=== PATIENT | male | born 1980 | race Caucasian/White ===

== ENCOUNTER → 2016-12-23 | Outpatient (CLI) | payer OTHER ==
[~2016-12-23] MED LIST: FLX5 PO; IBUP-1428 PO; LEVO112T4 PO; LEVO125T5 PO; LEVO137T3 PO; MAGN400T6 PO; NAPR500T3 PO; OXYC-57 PO; PRLSR20 PO
== END | disposition home or self-care (01) ==
LOC: C.LABBC 09:07
PROVIDERS: ATTEND Internal Medicine Geriatric Medicine
DX: E03.9 Hypothyroidism, unspecified (principal)

== ENCOUNTER 2017-02-05 15:37 | Inpatient (IN) | payer OTHER ==
[~2017-02-05] VITALS: Ht 185.4 cm; Wt 87.5 kg
[~2017-02-05 15:37] MED LIST changes: -FLX5 PO; -IBUP-1428 PO; -LEVO125T5 PO; -LEVO137T3 PO; -MAGN400T6 PO; -NAPR500T3 PO
[2017-02-05] MEDS ORDERED: SODIUM CHLORIDE 0.9% 1000ML 2,000 ML IV STA (15:55)
[2017-02-05] MEDS ORDERED: CYCLOBENZAPRINE HCL 10 MG TAB PO STA (16:05)
[2017-02-05] MEDS ORDERED: FENTANYL CITRATE INJ 50 MCG/1 ML 2 ML VIAL IV STA (16:05)
--- NOTE | 2017-02-05 16:15 | EMERGENCY ROOM VISIT NOTE ---
History Report prepared by Ashly: Kath Mayen Under the Supervision of: Dr. Becca Canales M.D. First contact with patient: 15:47 Chief Complaint: PAIN (GENERALIZED) Stated Complaint: FOOT PAIN History of Present Illness The patient is a 36 year old male who presents to the Emergency Room with complaints of intermittent generalized pain that began this morning when he woke up. He currently rates his discomfort as a 7/10 in severity. The patient states that he works outside every day. He states that this morning he woke up and felt sore, but states that he can typically stretch through the pain. The patient states that his pain persisted and states that he took some vitamins, Magnesium, Potassium, and a protein shake. He additionally notes that he drank two gallons of water today. The patient states that his muscle aches have been migrating all over his body. He states that he could not walk at one point. 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 He denies any loss of consciousness. The patient states that each of his hands locked up at different times. He states that he does not smoke and has had no recent alcohol use. The patient states that he occasionally uses marijuana, but not often. He reports a history of hypothyroidism, noting that he takes alternating doses of 125 and 137 mg of Levothyroxine each day. Source of History: patient Onset: this morning Position: other (global) Symptom Intensity: 7/10 Quality: other (generalized pain) Timing: intermittent Associated Symptoms: No LOC Note: associated Symptoms: hands locking up, muscle aches Review of Systems See HPI for pertinent positives & negatives. A total of 10 systems reviewed and were otherwise negative. Past Medical & Surgical Medical Problems: (1) JIMENA (acute kidney injury) (2) ANAL & RECTAL ABSCESS (3) Rhabdomyolysis (4) Sleep apnea Family History Cancer Social History Smoking Status: Never Smoker Alcohol Use: none Drug Use: none Marital Status: Occupation Status: employed Current/Historical Medications Scheduled Levothyroxine Sodium (Levothyroxine Sodium), 1 TAB PO QAM Levothyroxine Sodium (Levothyroxine Sodium), 1 TAB PO QAM Magnesium Oxide (Mag-Ox), 400 MG PO UD Scheduled PRN Ibuprofen (Motrin), 800 MG PO UD PRN for Pain Allergies Coded Allergies: Amoxicillin (Verified Allergy, Intermediate, RED SPOTS, 02/05/17) Doxycycline (Verified Allergy, Intermediate, NAILS PEELING OFF, 02/05/17) Sulfa Antibiotics (Verified Allergy, Mild, `, 02/05/17) Cephalosporins (Verified Allergy, Unknown, DURICEF, 02/05/17) Penicillins (Verified Allergy, Unknown, 02/05/17) Physical Exam Vital Signs Date Time Temp Pulse Resp B/P (MAP) Pulse Ox O2 Delivery O2 Flow Rate FiO2 02/05/17 19:20 98 Room Air 02/05/17 17:35 87 18 131/86 98 Room Air 02/05/17 16:12 103 02/05/17 15:38 36.7 129 18 134/98 97 Room Air Physical Exam Vital signs reviewed. General: Anxious-appearing male, in no significant distress. HEENT: No scleral icterus, PERRLA, neck supple. Atraumatic. Cardiovascular: Tachycardic rate and regular rhythm, no extra sounds. Pulmonary: Clear to auscultation bilaterally, normal work of breathing. Abdomen: Soft, nontender, nondistended, positive bowel sounds. Musculoskeletal: Atraumatic, no peripheral edema. Neurologic: Patient awake alert and oriented x 3, full strength in all 4 extremities. Cranial nerves 2 through 12 grossly intact. Skin: Warm, dry, no rash Medical Decision & Procedures ER Provider Diagnostic Interpretation: X-ray results as stated below per interpretation by me and the radiologist: CHEST ONE VIEW PORTABLE CLINICAL HISTORY: tachycardia COMPARISON STUDY: 10/19/2013 FINDINGS: The cardiac and mediastinal contours are normal. There is no evidence of focal pulmonary consolidation. There is no evidence of failure. No pleural effusions are visualized.[ IMPRESSION: No active disease in the chest. Electronically signed by: Hitesh Mayer M.D. 02/05/2017 4:22 PM Dictated Date/Time: 02/05/2017 4:21 PM Laboratory Results Test 02/05/17 16:20 Prothrombin Time 10.6 SECONDS (9.0-12.0) Prothromb Time International Ratio 1.0 (0.9-1.1) Creatine Kinase MB 5.7 ng/ml (0.5-3.6) Creatine Kinase MB Ratio 0.6 (0-3.0) Thyroid Stimulating Hormone (TSH) 0.842 uIu/ml (0.300-4.500) Laboratory results per my review. Medications Administered Medications (Trade) Dose Ordered Sig/Ursula Route Start Time Stop Time Status Last Admin Dose Admin Sodium Chloride 2,000 ml @ 999 mls/hr Q2H1M STAT IV 02/05/17 15:55 02/05/17 17:55 DC 02/05/17 16:23 999 MLS/HR Fentanyl Citrate (Fentanyl Inj) 50 mcg NOW STAT IV 02/05/17 16:05 02/05/17 16:06 DC 02/05/17 16:38 50 MCG Cyclobenzaprine HCl (Flexeril Tab) 10 mg NOW STAT PO 02/05/17 16:05 02/05/17 16:06 DC 02/05/17 16:38 10 MG Acetaminophen (Tylenol Tab) 650 mg Q4H PRN PO 02/05/17 19:00 03/07/17 18:59 02/07/17 14:19 650 MG ECG Indication: other (generalized pain) Rate (beats per minute): 108 Rhythm: sinus tachycardia Findings: no acute ischemic change, no ectopy, other (biatrial enlargement) ED Course 1555: Ordered Sodium Chloride 2000 ml @ 999 mls/hr IV. 1558: Past medical records reviewed. The patient was evaluated in room C11B. A complete history and physical examination was performed. 1605: Ordered Flexeril Tab 10 mg PO, Fentanyl Inj 50 mcg IV. 1729: I reevaluated the patient and he is resting comfortably. I discussed the exam findings with him and I discussed the treatment plan. He verbalized complete understanding and agreement. He will be evaluated for further treatment. 1743: I discussed the patients case [facility] She is going to evaluate the patient for further treatment. Medical Decision The patient is a 36 year old male who presents to the ED with complaints of generalized pains. Differentials include dehydration, rhabdomyolysis, electrolyte abnormality, medication affect, heat stroke, renal failure, viral illness This patient was evaluated and appeared to be in no significant distress. IV access was obtained and laboratory work was drawn. Patient was hydrated with normal saline solution. Patient was given IV fentanyl and Flexeril. Patient was given Tylenol orally. Patient's laboratory work reveals a rhabdomyolysis as well as acute kidney injury. Patient was informed of the findings. Renal ultrasound was performed and is negative for obstructive changes. Patient's case was discussed with the hospitalist service who evaluated the patient for admission and further management. Medication Reconcilliation Current Medication List: was personally reviewed by me Consults Time Called: 1724 Consulting Physician: OLI Tello Returned Call: [phone] I discussed the patients case with OLI Tello. She is going to evaluate the patient for further treatment. Impression Primary Impression: Rhabdomyolysis Additional Impressions: Acute kidney injury Hypercalcemia Scribe Attestation The scribe's documentation has been prepared under my direction and personally reviewed by me in its entirety. I confirm that the note above accurately reflects all work, treatment, procedures, and medical decision making performed by me. Departure Information Dispostion Being Evaluated By Hospitalist Referrals No Doctor, Assigned (PCP) Problem Qualifiers
--- NOTE | 2017-02-05 16:24 | DIAGNOSTIC IMAGING REPORT ---
CHEST ONE VIEW PORTABLE CLINICAL HISTORY: tachycardia COMPARISON STUDY: 10/19/2013 FINDINGS: The cardiac and mediastinal contours are normal. There is no evidence of focal pulmonary consolidation. There is no evidence of failure. No pleural effusions are visualized.[ IMPRESSION: No active disease in the chest. Electronically signed by: Hitesh Mayer M.D. 02/05/2017 4:22 PM Dictated Date/Time: 02/05/2017 4:21 PM
[2017-02-05] MEDS ORDERED: LEVO125T4 PO (16:39)
[2017-02-05] MEDS ORDERED: LEVO137T3 PO (16:39)
[2017-02-05] MEDS ORDERED: IBUP-1428 PO (16:41)
[2017-02-05] MEDS ORDERED: MAGN400T6 PO (16:41)
[2017-02-05 16:51] LABS: BASO % 0.1 %; BASO ABS # 0.02 K/uL (0-0.2); COMPLETE YES; HEMATOCRIT 51.3 % (42-52); IG% 0.5 %; LYMPH % 14.5 %; LYMPH ABS # 2.63 K/uL (1.2-3.4); MEAN CELL VOLUME 87.2 fL (80-100); MEAN CORPUSCULAR HEMOGLOBIN 30.8 pg (25-34); MEAN CORPUSCULAR HGB CONC 35.3 g/dl (32-36); MEAN PLATELET VOLUME 10.7 fL (7.4-10.4); MONO % 7.3 %; NEUT % 77.6 %; PLATELET COUNT 364 K/uL (130-400); RED BLOOD COUNT 5.88 M/uL (4.7-6.1)
[2017-02-05 17:09] LABS: BUN/CREATININE RATIO 16.3 (10-20); CALCIUM 11.5 mg/dl (8.5-10.1); CREATININE 2.9 mg/dl (0.60-1.40); MAGNESIUM 2.8 mg/dl (1.8-2.4); POTASSIUM 3.5 mmol/L (3.5-5.1)
[2017-02-05 17:18] LABS: CKMB/CK RATIO 0.6 (0-3.0); PHOSPHORUS 2.6 mg/dl (2.5-4.9); THYROID STIMULATING HORMONE 0.842 uIu/ml (0.300-4.500)
--- NOTE | 2017-02-05 18:23 | DIAGNOSTIC IMAGING REPORT ---
EXAMINATION: RENAL ULTRASOUND CLINICAL HISTORY: Acute renal insufficiency COMPARISON STUDY: CT scan dated 11/14/2013 FINDINGS: The right kidney measures 10.2 cm. The left kidney measures 10.7 cm. There is no evidence of hydronephrosis. There are no renal masses. There is minimal increase in renal cortical echogenicity. No bladder abnormalities are visualized. Neither ureteral jet was visualized. IMPRESSION : 1. Subtle increase in renal cortical echogenicity, consistent with medical renal disease 2. No evidence of hydronephrosis. Electronically signed by: Hitesh Mayer M.D. 02/05/2017 6:22 PM Dictated Date/Time: 02/05/2017 6:20 PM
[2017-02-05 19:20] VITALS: O2SAT 98; Ht 185.4 cm; Wt 87.5 kg
[2017-02-05 20:00] VITALS: BP 135/91; PULSE 77; TEMP 36.9; O2SAT 100
[2017-02-05] MEDS: SODIUM CHLORIDE 0.9% 1000ML 1,000 ML IV SCH (20:34)
[2017-02-05 20:50] LABS: PROTHROMBIN TIME (PATIENT) 10.6 SECONDS (9.0-12.0)
[2017-02-05 21:07] LABS: BUN/CREATININE RATIO 20.9 (10-20); CALCIUM 9.4 mg/dl (8.5-10.1); CREATININE 1.9 mg/dl (0.60-1.40); MAGNESIUM 2.4 mg/dl (1.8-2.4); PHOSPHORUS 3.9 mg/dl (2.5-4.9); POTASSIUM 3.5 mmol/L (3.5-5.1)
[2017-02-05] MEDS: MoRPHine SULFATE 2 MG/ML CARP IV PRN (21:26)
[2017-02-05] MEDS: HEPARIN SOD 5000 UNIT/0.5 ML CARP SQ SCH (23:09)
--- NOTE | 2017-02-05 23:13 | History and Physical ---
History & Physical Date & Time of Service: Feb 05, 2017 at 18:29 Chief Complaint: Foot Pain Primary Care Physician: James Barrios M.D. History of Present Illness Source: patient Pt is a 36 yo male with a h/o hypothyroidism who presents with severe muscle cramping and tetany throughout entire body that came on this afternoon. 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 He took some magnesium and calcium 1 tablet as well as ibuprofen one dose last night. When he woke up this AM, he felt better and proceeded to do more outdoor work today outside. He drank 2 full gallons of water today but by the afternoon he started having tetany and severe muscle cramps in his hands and arms, feet and legs, and lower back. It became so severe he had to lie down on the ground for about 20 min until he was finally able to get up and come in to the hospital. He reports similar symptoms but not nearly as severe about 1 month ago after doing some outdoor work. Prior to the last month, he hs never had problems like this before, never had kidney problems. He used to exercise frequently and would be sore but nothing like this. In ER, he was found to have JIMENA with a track patrol of 2.9, and mild rhabdomyolysis with a CK of almost 900. He was hypercalcemic, and had a leukocytosis of 18k and Hgb was high at 18. He appeared very dry and was oliguric despite drinking 2 galloons of water and 2 L IVFs in ER, finally made about 8 oz of urine as per pt (not measured in ER). Past Medical/Surgical History PMH: Hypothyroidism Sleep apnea PSH: Rectal abscess drainage x 2 Family History Cancer Father-some sort of aortic valve or aorta problem-pt unsure Mother- of GBM age 55 Social History Smoking Status: Never Smoker Alcohol Use: occasionally (3-4 beers per week) Drug Use: none (reports none to me but he told ER MD he smokes Marijuana occasionally) Marital Status: (and has a 1 yr old daughter) Housing status: lives with family Occupational Status: employed (self-employed [employer] business) Immunizations History of Influenza Vaccine: Unknown History of Tetanus Vaccine?: Unknown History of Pneumococcal: Unknown History of Hepatitis B Vaccine: Unknown Multi-Drug Resistant Organisms History of MDRO: No Allergies Coded Allergies: Amoxicillin (Verified Allergy, Intermediate, RED SPOTS, 02/05/17) Doxycycline (Verified Allergy, Intermediate, NAILS PEELING OFF, 02/05/17) Sulfa Antibiotics (Verified Allergy, Mild, `, 02/05/17) Cephalosporins (Verified Allergy, Unknown, DURICEF, 02/05/17) Penicillins (Verified Allergy, Unknown, 02/05/17) Home Medications Scheduled Levothyroxine Sodium (Levothyroxine Sodium), 1 TAB PO QAM Levothyroxine Sodium (Levothyroxine Sodium), 1 TAB PO QAM Magnesium Oxide (Mag-Ox), 400 MG PO UD Scheduled PRN Ibuprofen (Motrin), 800 MG PO UD PRN for Pain Review of Systems Constitutional: No fever, No chills Eyes: No problem reported ENT: No problem reported Respiratory: No problem reported Cardiovascular: No problem reported Abdomen: No GI bleeding, No problem reported Musculoskeletal: + muscle pain Genitourinary - Male: No problem reported Neurologic: No problem reported Psychiatric: No problem reported Endocrine: No problem reported Hematologic / Lymphatic: No problem reported Integumentary: No problem reported Allergic / Immunologic: No problem reported Physical Exam Vital Signs Date Time Temp Pulse Resp B/P (MAP) Pulse Ox O2 Delivery O2 Flow Rate FiO2 02/05/17 17:35 87 18 131/86 98 Room Air 02/05/17 16:12 103 02/05/17 15:38 36.7 129 18 134/98 97 Room Air General Appearance: WD/WN, no apparent distress Head: normocephalic, atraumatic Eyes: normal inspection, PERRL, EOMI ENT: hearing grossly normal, pharynx normal Neck: supple, trachea midline Respiratory/Chest: lungs clear, normal breath sounds, no respiratory distress, no accessory muscle use Cardiovascular: regular rate, rhythm, no edema, no gallop, no murmur, normal peripheral pulses Abdomen/GI: normal bowel sounds, non tender, soft, no organomegaly, no pulsatile mass Back: normal inspection, no muscle spasm (and no TTP) Extremities/Musculoskelatal: normal inspection, + pertinent finding (+TTP over all muscle groups, no active tetany, all compartments soft in upper and lower extremities, 2+ DP and radial pulses, no edema) Neurologic/Psych: no motor/sensory deficits, alert, normal mood/affect, oriented x 3 Skin: normal color, warm/dry, no rash Diagnostics Laboratory Results Results Past 24 Hours Test 02/05/17 16:20 Range/Units White Blood Count 18.10 4.8-10.8 K/uL Red Blood Count 5.88 4.7-6.1 M/uL Hemoglobin 18.1 14.0-18.0 g/dL Hematocrit 51.3 42-52 % Mean Corpuscular Volume 87.2 80-100 fL Mean Corpuscular Hemoglobin 30.8 25-34 pg Mean Corpuscular Hemoglobin Concent 35.3 32-36 g/dl Platelet Count 364 130-400 K/uL Mean Platelet Volume 10.7 7.4-10.4 fL Neutrophils (%) (Auto) 77.6 % Lymphocytes (%) (Auto) 14.5 % Monocytes (%) (Auto) 7.3 % Eosinophils (%) (Auto) 0.0 % Basophils (%) (Auto) 0.1 % Neutrophils # (Auto) 14.04 1.4-6.5 K/uL Lymphocytes # (Auto) 2.63 1.2-3.4 K/uL Monocytes # (Auto) 1.32 0.11-0.59 K/uL Eosinophils # (Auto) 0.00 0-0.5 K/uL Basophils # (Auto) 0.02 0-0.2 K/uL RDW Standard Deviation 42.6 36.4-46.3 fL RDW Coefficient of Variation 13.3 11.5-14.5 % Immature Granulocyte % (Auto) 0.5 % Immature Granulocyte # (Auto) 0.09 0.00-0.02 K/uL Sodium Level 130 136-145 mmol/L Potassium Level 3.5 3.5-5.1 mmol/L Chloride Level 96 98-107 mmol/L Carbon Dioxide Level 18 21-32 mmol/L Anion Gap 16.0 3-11 mmol/L Blood Urea Nitrogen 47 7-18 mg/dl Creatinine 2.90 0.60-1.40 mg/dl Est Creatinine Clear Calc Drug Dose 40.6 ml/min Estimated GFR () 31.3 Estimated GFR (Non- 27.0 BUN/Creatinine Ratio 16.3 10-20 Random Glucose 100 70-99 mg/dl Calcium Level 11.5 8.5-10.1 mg/dl Phosphorus Level 2.6 2.5-4.9 mg/dl Magnesium Level 2.8 1.8-2.4 mg/dl Total Bilirubin 1.5 0.2-1 mg/dl Direct Bilirubin 0.2 0-0.2 mg/dl Aspartate Amino Transf (AST/SGOT) 32 15-37 U/L Alanine Aminotransferase (ALT/SGPT) 29 12-78 U/L Alkaline Phosphatase 74 45-117 U/L Total Creatine Kinase 898 39-308 U/L Creatine Kinase MB 5.7 0.5-3.6 ng/ml Creatine Kinase MB Ratio 0.6 0-3.0 Total Protein 9.8 6.4-8.2 gm/dl Albumin 5.7 3.4-5.0 gm/dl Thyroid Stimulating Hormone (TSH) 0.842 0.300-4.500 uIu/ml Impression Assessment and Plan Pt is a 36 yo male with a h/o hypothyroidism who presents with severe muscle cramping and tetany throughout entire body that came on this afternoon. 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 He took some magnesium and calcium 1 tablet as well as ibuprofen one dose last night. When he woke up this AM, he felt better and proceeded to do more outdoor work today outside. He drank 2 full gallons of water today but by the afternoon he started having tetany and severe muscle cramps in his hands and arms, feet and legs, and lower back. It became so severe he had to lie down on the ground for about 20 min until he was finally able to get up and come in to the hospital. He reports similar symptoms but not nearly as severe about 1 month ago after doing some outdoor work. Prior to the last month, he hs never had problems like this before, never had kidney problems. He used to exercise frequently and would be sore but nothing like this. In ER, he was found to have JIMENA with a track patrol of 2.9, and mild rhabdomyolysis with a CK of almost 900. He was hypercalcemic, and had a leukocytosis of 18k and Hgb was high at 18. He appeared very dry and was oliguric despite drinking 2 galloons of water and 2 L IVFs in ER, finally made about 8 oz of urine as per pt (not measured in ER). JIMENA, AG metabolic acidosis, hyponatremia, hypercalcemia, rhabdomyolysis, Tetany- -> [employer] 2.9 on admission, Na+ 130, HCO3 18, AG 16, Ca++ 11.6, CK 898 on admission. Suspect underlying intrinsic renal disease given h/o previous symptoms similar to this 1 month ago in an otherwise healthy person, plus some component of prerenal injury due to dehydration (very hemoconcentrated on CBC), plus may be some component of rhabdo causing JIMENA however CK is not very impressive. Renal US with evidence of medical renal disease. He did take Prilosec x 1 year recently, but discontinued it 4 months ago. He only takes NSAIDs very rarely, and takes no supplements except an occasional Protein "Recovery Shake." Repeat PRP already all improving after IVFs. [employer] down to 1.9, met acidosis resolved. UA and Ur eos still not collected -follow PRP in AM -Consult to Nephrology appreciated to assess for any intrinsic renal disease or further workup -continue NS 200 mls/hr -pain control with morphine prn -follow CPK -renally dose meds and avoid nephrotoxins -renal diet Leukocytosis--> likely secondary to stress reaction. No evidence of infection on exam. UA still pending. -follow CBC Hypothyroidism- TSH normal here -continue home dose of Synthroid Proph-heparin Dispo-to home when improved Level of Care Med/Surg Resuscitation Status FULL RESUSCITATION VTE Prophylaxis Risk Level: Low Given or contraindicated: Unfractionated heparin SQ Additional Copies To James Barrios M.D.
[2017-02-06 00:06] VITALS: BP 147/81; PULSE 80; TEMP 36.5; O2SAT 99
[2017-02-06] MEDS: CYCLOBENZAPRINE HCL 5 MG TAB PO PRN ×2 (00:53→20:05)
[2017-02-06] MEDS: SODIUM CHLORIDE 0.9% 1000ML 1,000 ML IV SCH ×5 (00:53→20:09)
[2017-02-06] MEDS ORDERED: ZOLPIDEM TARTRATE 5 MG TAB PO STA (01:29)
[2017-02-06] MEDS ORDERED: ZOLPIDEM TARTRATE 5 MG TAB ONE (01:48)
[2017-02-06] MEDS: HEPARIN SOD 5000 UNIT/0.5 ML CARP SQ SCH ×3 (06:00→22:00)
[2017-02-06] MEDS: LEVOTHYROXINE 137 MCG TAB PO SCH (06:17)
[2017-02-06 06:43] LABS: BASO % 0.3 %; BASO ABS # 0.03 K/uL (0-0.2); COMPLETE YES; HEMATOCRIT 41.4 % (42-52); IG% 0.3 %; LYMPH % 49.9 %; LYMPH ABS # 4.52 K/uL (1.2-3.4); MEAN CELL VOLUME 89.4 fL (80-100); MEAN CORPUSCULAR HEMOGLOBIN 29.8 pg (25-34); MEAN CORPUSCULAR HGB CONC 33.3 g/dl (32-36); MEAN PLATELET VOLUME 9.8 fL (7.4-10.4); MONO % 11.4 %; NEUT % 37.1 %; PLATELET COUNT 268 K/uL (130-400); RED BLOOD COUNT 4.63 M/uL (4.7-6.1); WHITE BLOOD COUNT 9.06 K/uL (4.8-10.8)
[2017-02-06 07:02] LABS: BUN/CREATININE RATIO 20.8 (10-20); CALCIUM 8.5 mg/dl (8.5-10.1); CREATININE 1.2 mg/dl (0.60-1.40); MAGNESIUM 2.4 mg/dl (1.8-2.4); POTASSIUM 3.6 mmol/L (3.5-5.1)
[2017-02-06 07:23] LABS: PHOSPHORUS 3.4 mg/dl (2.5-4.9)
[2017-02-06 07:49] VITALS: BP 100/62; PULSE 73; TEMP 36.6; O2SAT 99
--- NOTE | 2017-02-06 08:20 | Medical Student: [facility] ---
Med Student Progress Note Date of Service Feb 06, 2017. Subjective No acute events overnight. Continues to complain of pain and cramping in muscles, mostly legs. He states that the pain travels from calf to hamstring/ thigh. He has been producing urine. He denies fever, chills, lightheadedness. He reports a headache but states it is improved from yesterday. He reports some nausea but denies abdominal pain, vomiting, diarrhea. Weakness of extremities but denies numbness, tingling or swelling. Review of Systems Constitutional: No fever, No chills, No sweats Respiratory: No cough, No shortness of breath Cardiac: No chest pain, No orthopnea, No edema Abdomen: + nausea, No pain, No vomiting Musculoskeletal: + muscle pain, No swelling Male : No dysuria, No urinary frequency, No hematuria Neurologic: + weakness, No numbness/tingling Objective Vital Signs Date Time Temp Pulse Resp B/P (MAP) Pulse Ox O2 Delivery O2 Flow Rate FiO2 02/06/17 07:49 36.6 73 16 100/62 (75) 99 Room Air 02/06/17 00:06 36.5 80 20 147/81 (103) 99 Room Air 02/06/17 00:00 Room Air 02/05/17 20:00 36.9 77 18 135/91 (106) 100 Room Air Free Flow/Blowby 02/05/17 19:30 80 18 131/86 98 Room Air 02/05/17 19:20 98 Room Air 02/05/17 17:35 87 18 131/86 98 Room Air 02/05/17 16:12 103 02/05/17 15:38 36.7 129 18 134/98 97 Room Air Physical Exam General Appearance: WD/WN, + mild distress Eyes: bilateral eyes PERRL, bilateral eyes EOMI Neck: supple, no adenopathy, thyroid normal Respiratory/Chest: lungs clear, normal breath sounds, no respiratory distress Cardiovascular: regular rate, rhythm, no edema, no gallop, no murmur Abdomen: normal bowel sounds, non tender, soft Extremities: normal range of motion, + pertinent finding (tenderness to calves and thighs, less tender in biceps/triceps) Neurologic/Psychiatric: no motor/sensory deficits, alert, normal mood/affect Skin: normal color, warm/dry, no rash Laboratory Results Last 24 Hours Test 02/05/17 16:20 02/05/17 20:30 02/06/17 05:56 White Blood Count 18.10 K/uL 9.06 K/uL Red Blood Count 5.88 M/uL 4.63 M/uL Hemoglobin 18.1 g/dL 13.8 g/dL Hematocrit 51.3 % 41.4 % Mean Corpuscular Volume 87.2 fL 89.4 fL Mean Corpuscular Hemoglobin 30.8 pg 29.8 pg Mean Corpuscular Hemoglobin Concent 35.3 g/dl 33.3 g/dl Platelet Count 364 K/uL 268 K/uL Mean Platelet Volume 10.7 fL 9.8 fL Neutrophils (%) (Auto) 77.6 % 37.1 % Lymphocytes (%) (Auto) 14.5 % 49.9 % Monocytes (%) (Auto) 7.3 % 11.4 % Eosinophils (%) (Auto) 0.0 % 1.0 % Basophils (%) (Auto) 0.1 % 0.3 % Neutrophils # (Auto) 14.04 K/uL 3.36 K/uL Lymphocytes # (Auto) 2.63 K/uL 4.52 K/uL Monocytes # (Auto) 1.32 K/uL 1.03 K/uL Eosinophils # (Auto) 0.00 K/uL 0.09 K/uL Basophils # (Auto) 0.02 K/uL 0.03 K/uL RDW Standard Deviation 42.6 fL 45.3 fL RDW Coefficient of Variation 13.3 % 13.7 % Immature Granulocyte % (Auto) 0.5 % 0.3 % Immature Granulocyte # (Auto) 0.09 K/uL 0.03 K/uL Prothrombin Time 10.6 SECONDS Prothromb Time International Ratio 1.0 Sodium Level 130 mmol/L 136 mmol/L 140 mmol/L Potassium Level 3.5 mmol/L 3.5 mmol/L 3.6 mmol/L Chloride Level 96 mmol/L 103 mmol/L 109 mmol/L Carbon Dioxide Level 18 mmol/L 24 mmol/L 27 mmol/L Anion Gap 16.0 mmol/L 9.0 mmol/L 4.0 mmol/L Blood Urea Nitrogen 47 mg/dl 40 mg/dl 25 mg/dl Creatinine 2.90 mg/dl 1.90 mg/dl 1.20 mg/dl Est Creatinine Clear Calc Drug Dose 40.6 ml/min 61.9 ml/min 98.0 ml/min Estimated GFR () 31.3 52.1 90.9 Estimated GFR (Non- 27.0 45.0 78.4 BUN/Creatinine Ratio 16.3 20.9 20.8 Random Glucose 100 mg/dl 100 mg/dl 84 mg/dl Calcium Level 11.5 mg/dl 9.4 mg/dl 8.5 mg/dl Phosphorus Level 2.6 mg/dl 3.9 mg/dl 3.4 mg/dl Magnesium Level 2.8 mg/dl 2.4 mg/dl 2.4 mg/dl Total Bilirubin 1.5 mg/dl 0.9 mg/dl Direct Bilirubin 0.2 mg/dl 0.2 mg/dl Aspartate Amino Transf (AST/SGOT) 32 U/L 46 U/L Alanine Aminotransferase (ALT/SGPT) 29 U/L 25 U/L Alkaline Phosphatase 74 U/L 48 U/L Total Creatine Kinase 898 U/L 1689 U/L Creatine Kinase MB 5.7 ng/ml Creatine Kinase MB Ratio 0.6 Total Protein 9.8 gm/dl 6.7 gm/dl Albumin 5.7 gm/dl 3.5 gm/dl Thyroid Stimulating Hormone (TSH) 0.842 uIu/ml 25-Hydroxy Vitamin D Total 30.8 ng/ml Medications Current Inpatient Medications Medications (Trade) Dose Ordered Sig/Ursula Route Start Time Stop Time Status Last Admin Dose Admin Heparin Sodium (Porcine) (Heparin Sq 5000 Unit/0.5ml) 5,000 unit Q8H SQ 02/05/17 22:00 03/07/17 21:59 Acetaminophen (Tylenol Tab) 650 mg Q4H PRN PO 02/05/17 19:00 03/07/17 18:59 Morphine Sulfate (MoRPHine SULFATE INJ) 2 mg Q2H PRN IV 02/05/17 19:30 02/19/17 19:29 02/05/17 21:26 2 MG Sodium Chloride 1,000 ml @ 200 mls/hr Q5H IV 02/05/17 19:30 03/07/17 19:29 02/06/17 05:50 200 MLS/HR Levothyroxine Sodium (Synthroid Tab) 125 mcg Q2D@0600 PO 02/07/17 06:00 03/09/17 05:59 Levothyroxine Sodium (Synthroid Tab) 137 mcg Q2D@0600 PO 02/06/17 06:00 03/08/17 05:59 02/06/17 06:17 137 MCG Cyclobenzaprine HCl (Flexeril Tab) 5 mg TID PRN PO 02/05/17 23:45 03/07/17 23:44 02/06/17 00:53 5 MG Assessment and Plan Assessment and Plan: 36 year old male with a past medical history of hypothyroidism who presented with 2 day duration of severe muscle cramping and tetany who was found to have a CK 898 uptrending to 1689 consistent with rhabdomyolysis as well as a JIMENA with a Cr 2.9 on admission. Myopathy - likely rhabdomyolysis with CK 898, repeat 1,689; UA negative for blood; per Nephro recs check urine for myoglobin - denies steroid use, alcohol use, drug use; TSH WNL, electrolyte abnormalities resolved and pain persists - if does not improve with aggressive fluid resuscitation will consider checking ESR, lyme titers for inflammatory and infectious etiologies of myopathy - Lactate (0.7) and LDH (169) WNL - continue NS at 200ml/hr - Morphine prn and acetominophen for pain control JIMENA - likely component of prerenal and ATN from the elevated CK/possible rhabdo - continue NS at 200ml/hr - BMP qAM - renal diet, renally dose meds - Nephrology following Leukocytosis - 16 on admission, now 9 - resolved with fluid resuscitation, was likely due to stress reaction - UA negative Hypothyroidism - TSH WNL - continue levothyroxine at 125 q2d and 137 q2d Electrolyte abnormalities - hyponatermia resolved - hypercalcemia resolved
[2017-02-06] MEDS: ACETAMINOPHEN 325 MG TAB PO PRN (08:27)
[2017-02-06] MEDS: MoRPHine SULFATE 2 MG/ML CARP IV PRN ×4 (08:28→20:00)
[2017-02-06 09:01] LABS: MANUAL MICROSCOPIC REQUIRED? NO; URINE APPEARANCE CLEAR (CLEAR); URINE BILIRUBIN NEG (NEG); URINE COLOR YELLOW; URINE NITRITE NEG (NEG); UROBILINOGEN NEG (NEG)
[2017-02-06 09:04] LABS: REVIEW REQ? NO
[2017-02-06] MEDS ORDERED: MoRPHine SULFATE 2 MG/ML CARP IV STA (10:13)
--- NOTE | 2017-02-06 10:38 | Nephrology Consultation ---
Nephrology Consultation Date & Providers Date of Consultation: Feb 06, 2017. Primary Care Provider: James Barrios M.D. Referring Provider: Reason for Consultation Evaluation and management for acute kidney injury. History of Present Illness David is a 36-year-old gentlemen otherwise healthy with no significant past medical history admitted to the hospital with muscle weakness, myalgia and acute kidney injury. nephrologic consult was requested for further evaluation and management for acute kidney injury. Electronic medical records including labs and imaging were reviewed in detail during patient's visit. David was in his usual state of health until yesterday when he did some yard work. While he was working outside he started noticing muscle weakness and pain. he feel like he was unable to walk. Throughout the workup or said he has been drinking and drank almost 2 liters of free water. Eventually as his pain and weakness worsened he presented to the ED ED for further evaluation. In the ED his vital sign was normal. Lab showed acute kidney injury, creatinine was 2.8. He had no prior history of chronic kidney disease, baseline creatinine has been 0.9-1.0. He had other electrolyte abnormality including hyponatremia, serum sodium was 130, hypercalcemia, calcium was 11.5 and metabolic acidosis. Hemoglobin was 18.1 and albumin was 5.7. Renal ultrasound showed normal size kidney, no hydronephrosis however concern for medical renal disease although the imaging study did not show significant cortical atrophy or increased echogenicity. urinalysis was negative for hematuria, proteinuria pyuria But had 1+ ketones. CPK level was and 900 which slightly worsened today to 1400. Potassium was normal, TSH and vitamin-D was normal. He was started on IV hydration, currently running at normal saline 200 mL/hour. Renal function rapidly improved, creatinine 1.2 this morning. Has been having decent urine output. Electrolyte abnormality normalized. Hemoglobin normalized. He reports similar but less severe episode almost a month ago while doing yard work. 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 He has hypothyroidism has been on levothyroxine. He is a nonsmoker, denies any recreational drug or any other health supplement. No family history of myopathy. He has not been on statin therapy. Family history significant for mother passed a rare from glioblastoma, dad and a brother is otherwise healthy. He continues to have significant pain and weakness specially in his proximal thigh and back muscle. No fever or chills. Denies any nausea or abdominal pain. Allergies Coded Allergies: Amoxicillin (Verified Allergy, Intermediate, RED SPOTS, 02/05/17) Doxycycline (Verified Allergy, Intermediate, NAILS PEELING OFF, 02/05/17) Sulfa Antibiotics (Verified Allergy, Mild, `, 02/05/17) Cephalosporins (Verified Allergy, Unknown, DURICEF, 02/05/17) Penicillins (Verified Allergy, Unknown, 02/05/17) Inpatient Medications Current Inpatient Medications Medications (Trade) Dose Ordered Sig/Ursula Route Start Time Stop Time Status Last Admin Dose Admin Heparin Sodium (Porcine) (Heparin Sq 5000 Unit/0.5ml) 5,000 unit Q8H SQ 02/05/17 22:00 03/07/17 21:59 Acetaminophen (Tylenol Tab) 650 mg Q4H PRN PO 02/05/17 19:00 03/07/17 18:59 02/06/17 08:27 650 MG Morphine Sulfate (MoRPHine SULFATE INJ) 2 mg Q2H PRN IV 02/05/17 19:30 02/19/17 19:29 02/06/17 08:28 2 MG Sodium Chloride 1,000 ml @ 200 mls/hr Q5H IV 02/05/17 19:30 03/07/17 19:29 02/06/17 05:50 200 MLS/HR Levothyroxine Sodium (Synthroid Tab) 125 mcg Q2D@0600 PO 02/07/17 06:00 03/09/17 05:59 Levothyroxine Sodium (Synthroid Tab) 137 mcg Q2D@0600 PO 02/06/17 06:00 03/08/17 05:59 02/06/17 06:17 137 MCG Cyclobenzaprine HCl (Flexeril Tab) 5 mg TID PRN PO 02/05/17 23:45 03/07/17 23:44 02/06/17 00:53 5 MG Family History Cancer Social History Smoking Status: Never Smoker Alcohol Use: occasionally (3-4 beers per week) Drug Use: none (reports none to me but he told ER he smokes Marijuana occasionally) Marital Status: (and has a 1 yr old daughter) Housing Status: lives with family Occupation: employed (self-employed [employer] business) Review of Systems A complete review of systems was performed. Pertinent positives are noted above. All other systems are negative. Physical Exam Date Time Temp Pulse Resp B/P (MAP) Pulse Ox O2 Delivery O2 Flow Rate FiO2 02/06/17 08:00 Room Air 02/06/17 07:49 36.6 73 16 100/62 (75) 99 Room Air 02/06/17 00:06 36.5 80 20 147/81 (103) 99 Room Air 02/06/17 00:00 Room Air 02/05/17 20:00 36.9 77 18 135/91 (106) 100 Room Air Free Flow/Blow[place] 02/05/17 19:30 80 18 131/86 98 Room Air 02/05/17 19:20 98 Room Air 02/05/17 17:35 87 18 131/86 98 Room Air 02/05/17 16:12 103 02/05/17 15:38 36.7 129 18 134/98 97 Room Air GENERAL: Young male, AAA x 3, pleasant, healthy-appearing, not in any distress. NECK: Supple, no JVD. RESPIRATORY: Normal breathing efforts, no accessory muscle use, clear to auscultation bilaterally, no wheezes or rales. CARDIOVASCULAR: S1, S2 normal, rate rhythm regular. EXTREMITY: No lower extremity edema NEURO: speech fluent. PSYCHIATRY: Normal mood and judgment Laboratory Results Last 24 Hours Test 02/05/17 16:20 02/05/17 20:30 02/06/17 05:56 02/06/17 08:50 White Blood Count 18.10 K/uL 9.06 K/uL Red Blood Count 5.88 M/uL 4.63 M/uL Hemoglobin 18.1 g/dL 13.8 g/dL Hematocrit 51.3 % 41.4 % Mean Corpuscular Volume 87.2 fL 89.4 fL Mean Corpuscular Hemoglobin 30.8 pg 29.8 pg Mean Corpuscular Hemoglobin Concent 35.3 g/dl 33.3 g/dl Platelet Count 364 K/uL 268 K/uL Mean Platelet Volume 10.7 fL 9.8 fL Neutrophils (%) (Auto) 77.6 % 37.1 % Lymphocytes (%) (Auto) 14.5 % 49.9 % Monocytes (%) (Auto) 7.3 % 11.4 % Eosinophils (%) (Auto) 0.0 % 1.0 % Basophils (%) (Auto) 0.1 % 0.3 % Neutrophils # (Auto) 14.04 K/uL 3.36 K/uL Lymphocytes # (Auto) 2.63 K/uL 4.52 K/uL Monocytes # (Auto) 1.32 K/uL 1.03 K/uL Eosinophils # (Auto) 0.00 K/uL 0.09 K/uL Basophils # (Auto) 0.02 K/uL 0.03 K/uL RDW Standard Deviation 42.6 fL 45.3 fL RDW Coefficient of Variation 13.3 % 13.7 % Immature Granulocyte % (Auto) 0.5 % 0.3 % Immature Granulocyte # (Auto) 0.09 K/uL 0.03 K/uL Prothrombin Time 10.6 SECONDS Prothromb Time International Ratio 1.0 Sodium Level 130 mmol/L 136 mmol/L 140 mmol/L Potassium Level 3.5 mmol/L 3.5 mmol/L 3.6 mmol/L Chloride Level 96 mmol/L 103 mmol/L 109 mmol/L Carbon Dioxide Level 18 mmol/L 24 mmol/L 27 mmol/L Anion Gap 16.0 mmol/L 9.0 mmol/L 4.0 mmol/L Blood Urea Nitrogen 47 mg/dl 40 mg/dl 25 mg/dl Creatinine 2.90 mg/dl 1.90 mg/dl 1.20 mg/dl Est Creatinine Clear Calc Drug Dose 40.6 ml/min 61.9 ml/min 98.0 ml/min Estimated GFR () 31.3 52.1 90.9 Estimated GFR (Non- 27.0 45.0 78.4 BUN/Creatinine Ratio 16.3 20.9 20.8 Random Glucose 100 mg/dl 100 mg/dl 84 mg/dl Calcium Level 11.5 mg/dl 9.4 mg/dl 8.5 mg/dl Phosphorus Level 2.6 mg/dl 3.9 mg/dl 3.4 mg/dl Magnesium Level 2.8 mg/dl 2.4 mg/dl 2.4 mg/dl Total Bilirubin 1.5 mg/dl 0.9 mg/dl Direct Bilirubin 0.2 mg/dl 0.2 mg/dl Aspartate Amino Transf (AST/SGOT) 32 U/L 46 U/L Alanine Aminotransferase (ALT/SGPT) 29 U/L 25 U/L Alkaline Phosphatase 74 U/L 48 U/L Total Creatine Kinase 898 U/L 1689 U/L Creatine Kinase MB 5.7 ng/ml Creatine Kinase MB Ratio 0.6 Total Protein 9.8 gm/dl 6.7 gm/dl Albumin 5.7 gm/dl 3.5 gm/dl Thyroid Stimulating Hormone (TSH) 0.842 uIu/ml 25-Hydroxy Vitamin D Total 30.8 ng/ml Urine Color YELLOW Urine Appearance CLEAR Urine pH 6.0 Urine Specific [place] 1.010 Urine Protein NEG Urine Glucose (UA) NEG Urine Ketones 1+ Urine Occult Blood NEG Urine Nitrite NEG Urine Bilirubin NEG Urine Urobilinogen NEG Urine Leukocyte Esterase NEG Test 02/06/17 09:48 Impression David is a 36-year-old male with acute kidney injury and electrolyte abnormality in the setting of straining was outside at activity. On admission he was found to be significantly volume depleted. acute kidney injury most likely prerenal as renal function rapidly improved from creatinine 2.7-1.2 less than 24 hours with IV hydration. No prior history of chronic kidney disease. Urinalysis negative for hematuria proteinuria. Renal ultrasound was otherwise unremarkable. He did have evidence of mild rhabdomyolysis but not enough to cause acute kidney injury. Since this happened twice in a young person who was otherwise normally pretty active, Cannot exclude the possibility for some underlying metabolic myopathy however, could be secondary to severe volume depletion with strenuous activity causing muscle damage. Although renal ultrasound report commented on some medical renal disease, however patient has normal renal function, baseline creatinine 0.9-1.0, imaging personally reviewed did not show any significant renal cortical thinning or increased echogenicity. Recommendations --continue on IV normal saline at 200 mL/hour --repeat CPK --Check urine with microscopy and myoglobin in urine --will check lactate, LDH and I wait for any evidence of metabolic disorder --Discussed in detail with the patient and explained above plan. --expect renal function to normalize --eventually if all workup negative and patient continues to have significant muscle pain, he may need muscle biopsy Thank you for allowing me to participate in your patient's care. It was a pleasure to see David This chart was completed utilizing [employer] Speech and voice recognition software. Grammatical errors, random word insertions, pronoun errors and incomplete sentences are occasional consequences of this system. Any questions or concerns about the content, text or information contained within the body of this dictation should be addressed directly to the physician for clarification.
--- NOTE | 2017-02-06 14:03 | Family Medicine Progress Note ---
Progress Note Date of Service Feb 06, 2017. Subjective Pt evaluation today including: conversation w/ patient, physical exam, chart review, lab review, review of inpatient medication list Pain: Generalized pain and stiffness reported, worse in calves PO Intake: Tolerating PO intake Voiding: no voiding problems Mr. Pulido is a pleasant 36 year old man who states he is currently experiencing generalized stiffness and pain in his arms, lower back, but worst of all, in his calves travelling up his legs. He states the pain has improved since yesterday, and is not pulsating as much, but that it is stiff and that he experiences 6/10 cramps that come and go as though he has recently run a mile and the muscles are sore. He experiences difficulty with walking as stretching out his legs is painful, and reports that the pain is best when he lies down and elevates his legs. He denies nausea and vomiting, dizziness, chest pain and shortness of breath. Constitutional: + weakness, No fever, No chills, No sweats, No weight loss Respiratory: No cough, No sputum, No wheezing, No shortness of breath Cardiovascular: No chest pain, No orthopnea, No PND, No edema Abdomen: No pain, No nausea, No vomiting, No diarrhea, No constipation Musculoskeletal: + muscle pain, + calf pain Male : No dysuria, No urinary frequency, No hematuria All Other Systems: Reviewed and Negative Medications Current Inpatient Medications Medications (Trade) Dose Ordered Sig/Ursula Route Start Time Stop Time Status Last Admin Dose Admin Heparin Sodium (Porcine) (Heparin Sq 5000 Unit/0.5ml) 5,000 unit Q8H SQ 02/05/17 22:00 03/07/17 21:59 Acetaminophen (Tylenol Tab) 650 mg Q4H PRN PO 02/05/17 19:00 03/07/17 18:59 02/06/17 08:27 650 MG Morphine Sulfate (MoRPHine SULFATE INJ) 2 mg Q2H PRN IV 02/05/17 19:30 02/19/17 19:29 02/06/17 13:16 2 MG Sodium Chloride 1,000 ml @ 200 mls/hr Q5H IV 02/05/17 19:30 03/07/17 19:29 02/06/17 10:00 200 MLS/HR Levothyroxine Sodium (Synthroid Tab) 125 mcg Q2D@0600 PO 02/07/17 06:00 03/09/17 05:59 Levothyroxine Sodium (Synthroid Tab) 137 mcg Q2D@0600 PO 02/06/17 06:00 03/08/17 05:59 02/06/17 06:17 137 MCG Cyclobenzaprine HCl (Flexeril Tab) 5 mg TID PRN PO 02/05/17 23:45 03/07/17 23:44 02/06/17 00:53 5 MG Objective Vital Signs Date Time Temp Pulse Resp B/P (MAP) Pulse Ox O2 Delivery O2 Flow Rate FiO2 02/06/17 08:00 Room Air 02/06/17 07:49 36.6 73 16 100/62 (75) 99 Room Air 02/06/17 00:06 36.5 80 20 147/81 (103) 99 Room Air 02/06/17 00:00 Room Air 02/05/17 20:00 36.9 77 18 135/91 (106) 100 Room Air Free Flow/Blowby 02/05/17 19:30 80 18 131/86 98 Room Air 02/05/17 19:20 98 Room Air 02/05/17 17:35 87 18 131/86 98 Room Air 02/05/17 16:12 103 02/05/17 15:38 36.7 129 18 134/98 97 Room Air Physical Exam General Appearance: WD/WN, no apparent distress Neck: supple, no adenopathy, no JVD Respiratory/Chest: chest non-tender, lungs clear, normal breath sounds, no respiratory distress, no accessory muscle use Cardiovascular: regular rate, rhythm, no edema, no gallop, no JVD, no murmur Abdomen: normal bowel sounds, non tender, soft, no organomegaly, no pulsatile mass Extremities: normal inspection, normal capillary refill, + calf tenderness, + pertinent finding (tenderness over calves & thighs, mild tenderness over forearms) Neurologic/Psychiatric: alert, normal mood/affect, oriented x 3 Skin: normal color Laboratory Results 02/06/17 05:56 Red Blood Count 4.63, Mean Corpuscular Volume 89.4, Mean Corpuscular Hemoglobin 29.8, Mean Corpuscular Hemoglobin Concent 33.3, Mean Platelet Volume 9.8, Neutrophils (%) (Auto) 37.1, Lymphocytes (%) (Auto) 49.9, Monocytes (%) (Auto) 11.4, Eosinophils (%) (Auto) 1.0, Basophils (%) (Auto) 0.3, Neutrophils # (Auto ) 3.36, Lymphocytes # (Auto) 4.52, Monocytes # (Auto) 1.03, Eosinophils # (Auto ) 0.09, Basophils # (Auto) 0.03 02/06/17 05:56 Test 02/05/17 16:20 02/06/17 05:56 02/06/17 08:50 02/06/17 11:03 Prothrombin Time 10.6 SECONDS (9.0-12.0) Prothromb Time International Ratio 1.0 (0.9-1.1) Creatine Kinase MB 5.7 ng/ml (0.5-3.6) Creatine Kinase MB Ratio 0.6 (0-3.0) Thyroid Stimulating Hormone (TSH) 0.842 uIu/ml (0.300-4.500) White Blood Count 9.06 K/uL (4.8-10.8) Red Blood Count 4.63 M/uL (4.7-6.1) Hemoglobin 13.8 g/dL (14.0-18.0) Hematocrit 41.4 % (42-52) Mean Corpuscular Volume 89.4 fL (80-100) Mean Corpuscular Hemoglobin 29.8 pg (25-34) Mean Corpuscular Hemoglobin Concent 33.3 g/dl (32-36) Platelet Count 268 K/uL (130-400) Mean Platelet Volume 9.8 fL (7.4-10.4) Neutrophils (%) (Auto) 37.1 % Lymphocytes (%) (Auto) 49.9 % Monocytes (%) (Auto) 11.4 % Eosinophils (%) (Auto) 1.0 % Basophils (%) (Auto) 0.3 % Neutrophils # (Auto) 3.36 K/uL (1.4-6.5) Lymphocytes # (Auto) 4.52 K/uL (1.2-3.4) Monocytes # (Auto) 1.03 K/uL (0.11-0.59) Eosinophils # (Auto) 0.09 K/uL (0-0.5) Basophils # (Auto) 0.03 K/uL (0-0.2) RDW Standard Deviation 45.3 fL (36.4-46.3) RDW Coefficient of Variation 13.7 % (11.5-14.5) Immature Granulocyte % (Auto) 0.3 % Immature Granulocyte # (Auto) 0.03 K/uL (0.00-0.02) Anion Gap 4.0 mmol/L (3-11) Est Creatinine Clear Calc Drug Dose 98.0 ml/min Estimated GFR () 90.9 Estimated GFR (Non- 78.4 BUN/Creatinine Ratio 20.8 (10-20) Calcium Level 8.5 mg/dl (8.5-10.1) Phosphorus Level 3.4 mg/dl (2.5-4.9) Magnesium Level 2.4 mg/dl (1.8-2.4) Total Bilirubin 0.9 mg/dl (0.2-1) Direct Bilirubin 0.2 mg/dl (0-0.2) Aspartate Amino Transf (AST/SGOT) 46 U/L (15-37) Alanine Aminotransferase (ALT/SGPT) 25 U/L (12-78) Alkaline Phosphatase 48 U/L (45-117) Total Creatine Kinase 1689 U/L (39-308) Total Protein 6.7 gm/dl (6.4-8.2) Albumin 3.5 gm/dl (3.4-5.0) 25-Hydroxy Vitamin D Total 30.8 ng/ml (30-100) Urine Color YELLOW Urine Appearance CLEAR (CLEAR) Urine pH 6.0 (4.5-7.5) Urine Specific [place] 1.010 (1.000-1.030) Urine Protein NEG (NEG) Urine Glucose (UA) NEG (NEG) Urine Ketones 1+ (NEG) Urine Occult Blood NEG (NEG) Urine Nitrite NEG (NEG) Urine Bilirubin NEG (NEG) Urine Urobilinogen NEG (NEG) Urine Leukocyte Esterase NEG (NEG) Erythrocyte Sedimentation Rate 2 mm/hr (0-14) Lactic Acid Level 0.7 mmol/L (0.4-2.0) Lactate Dehydrogenase 169 U/L (87-241) C-Reactive Protein < 0.29 mg/dl (0-0.29) Assessment and Plan Rhabdomyolysis - CK annette from 898 to 1689, plus elevated Cr and muscle pain - treat with IVF, 200mls/hr - Creatinine improved from 1.9 to 1.2 - pain being treated with 2mg morphine + acetaminophen ?Intrinsic Renal Disease - Thank you to nephrology for input - second event occurring in a month, ?intrinsic renal disease - normal renal US - Urine will be checked with microscopy & for myoglobin in urine - Lactate (0.7), LDH (169) both normal - Nephro recommendation is muscle biopsy is all workup for renal disease is negative & pt continues to have pain Leukocytosis - 18k WCC on admission. now 9k - UA negative - likely due to previous dehydration and hemoconcentration Hypothyroidism - continue home dose of levothyroxine VTE Prophylaxis - Heparin SQ Q8H Code - Full Disposition - remains on med/surg Resident Tracking Resident Involvement: Resident Care Provided Care Provided: Adult Hospital Medicine History Resident Physician Supervision Note: I was present with Dr. Perez during the history and exam. I discussed the case with the resident and agree with the findings and plan as documented in the note. Any exceptions or clarifications are listed here. Pt reports persistent, mildly improved b/l LE pain and swelling especially while elevated. General Appearance: WD/WN, no apparent distress Extremities: calf tenderness, inflammation, swelling Neurologic/Psychiatric: no motor/sensory deficits, alert, normal mood/affect, oriented x 3 Assessment/Plan 36 y/o male w/o significant past medical history w/ new onset diffuse mylagias and increasing CK concerning for rhabdo Suspected rhabdo - continue aggressive IV hydration, trend CK
[2017-02-06 15:56] VITALS: BP 112/70; PULSE 61; TEMP 36.7; O2SAT 99
[2017-02-06 16:00] VITALS: O2SAT 99
[2017-02-06 19:25] LABS: URINE APPEARANCE CLEAR (CLEAR); URINE BILIRUBIN NEG (NEG); URINE COLOR YELLOW; URINE EPITHELIAL CELL AUTO 0-5 /lpf (0-5); URINE NITRITE NEG (NEG); URINE PH 5.5 (4.5-7.5); URINE SPECIFIC GRAVITY 1.023 (1.000-1.030); UROBILINOGEN NEG (NEG)
[2017-02-06 19:29] LABS: MANUAL MICROSCOPIC REQUIRED? NO; REVIEW REQ? NO
[2017-02-06 23:13] VITALS: BP 103/65; PULSE 66; TEMP 36.8; O2SAT 99
[2017-02-07] MEDS: MoRPHine SULFATE 2 MG/ML CARP IV PRN ×4 (00:17→22:27)
[2017-02-07] MEDS: ZOLPIDEM TARTRATE 5 MG TAB PO PRN ×2 (00:53→22:40)
[2017-02-07] MEDS: SODIUM CHLORIDE 0.9% 1000ML 1,000 ML IV SCH ×3 (00:55→10:36)
[2017-02-07] MEDS: HEPARIN SOD 5000 UNIT/0.5 ML CARP SQ SCH ×4 (05:58→23:10)
[2017-02-07] MEDS ORDERED: LEVOTHYROXINE 125 MCG TAB PO SCH (06:00)
--- NOTE | 2017-02-07 07:14 | Family Medicine Progress Note ---
Progress Note Date of Service Feb 07, 2017. Subjective Pt evaluation today including: conversation w/ patient, physical exam, chart review, lab review, review of inpatient medication list Pain: 5/10 pain reported - worse on right side PO Intake: Tolerating PO intake Voiding: no voiding problems Mr. Pulido reports that he is still stiff and sore, mostly in his arms and legs. He showered yesterday night and reports that this initially helped with the pain but that it later returned. Walking is still difficult for him as he reports pain and stiffness. His primary concern is the numbness and tingling he is experiencing in his right hand, starting in his fingers and traveling up his wrist. He also reports cramping 7/10 pain in his right leg. He denies any urinary symptoms, and is having regular bowel movements. No SOB, chest pain. Constitutional: No fever, No chills, No sweats, No weight loss, No weakness Respiratory: No cough, No sputum, No shortness of breath Cardiovascular: No chest pain, No edema, No palpitations Abdomen: No pain, No nausea, No vomiting, No diarrhea, No constipation Musculoskeletal: + joint pain (right hand + right knee), + muscle pain, + calf pain Male : No dysuria, No urinary frequency, No hematuria All Other Systems: Reviewed and Negative Medications Current Inpatient Medications Medications (Trade) Dose Ordered Sig/Ursula Route Start Time Stop Time Status Last Admin Dose Admin Heparin Sodium (Porcine) (Heparin Sq 5000 Unit/0.5ml) 5,000 unit Q8H SQ 02/05/17 22:00 03/07/17 21:59 Acetaminophen (Tylenol Tab) 650 mg Q4H PRN PO 02/05/17 19:00 03/07/17 18:59 02/07/17 14:19 650 MG Morphine Sulfate (MoRPHine SULFATE INJ) 2 mg Q2H PRN IV 02/05/17 19:30 02/19/17 19:29 02/07/17 09:28 2 MG Levothyroxine Sodium (Synthroid Tab) 125 mcg Q2D@0600 PO 02/07/17 06:00 03/09/17 05:59 02/07/17 05:57 125 MCG Levothyroxine Sodium (Synthroid Tab) 137 mcg Q2D@0600 PO 02/06/17 06:00 03/08/17 05:59 02/06/17 06:17 137 MCG Cyclobenzaprine HCl (Flexeril Tab) 5 mg TID PRN PO 02/05/17 23:45 03/07/17 23:44 02/06/17 20:05 5 MG Zolpidem Tartrate (Ambien Tab) 5 mg HS PRN PO 02/06/17 23:30 03/08/17 23:29 02/07/17 00:53 5 MG Sodium Chloride 1,000 ml @ 80 mls/hr [id number] IV 02/07/17 11:30 03/09/17 11:29 02/07/17 11:36 80 MLS/HR Objective Vital Signs Date Time Temp Pulse Resp B/P (MAP) Pulse Ox O2 Delivery O2 Flow Rate FiO2 02/07/17 15:04 36.9 71 18 111/71 (84) 98 Room Air 02/07/17 08:00 Room Air 02/07/17 07:52 36.5 72 16 95/61 (72) 97 Room Air 02/07/17 00:00 Room Air 02/06/17 23:13 36.8 66 18 103/65 (78) 99 Room Air Physical Exam General Appearance: WD/WN, no apparent distress Neck: supple, no adenopathy Respiratory/Chest: chest non-tender, lungs clear, normal breath sounds, no respiratory distress, no accessory muscle use Cardiovascular: regular rate, rhythm, no edema, no gallop, no JVD, no murmur Abdomen: normal bowel sounds, non tender, soft, no organomegaly, no pulsatile mass Extremities: normal capillary refill, + calf tenderness (bilateral calf tenderness), + pertinent finding (tenderness over right hand & forearm) Skin: normal color Laboratory Results 02/07/17 06:53 Test 02/06/17 19:00 02/07/17 06:53 Urine Color YELLOW Urine Appearance CLEAR (CLEAR) Urine pH 5.5 (4.5-7.5) Urine Specific [place] 1.023 (1.000-1.030) Urine Protein NEG (NEG) Urine Glucose (UA) NEG (NEG) Urine Ketones NEG (NEG) Urine Occult Blood NEG (NEG) Urine Nitrite NEG (NEG) Urine Bilirubin NEG (NEG) Urine Urobilinogen NEG (NEG) Urine Leukocyte Esterase NEG (NEG) Urine WBC (Auto) 1-5 /hpf (0-5) Urine RBC (Auto) 0-4 /hpf (0-4) Urine Hyaline Casts (Auto) 0 /lpf (0-5) Urine Epithelial Cells (Auto) 0-5 /lpf (0-5) Urine Bacteria (Auto) NEG (NEG) Anion Gap 5.0 mmol/L (3-11) Est Creatinine Clear Calc Drug Dose 138.4 ml/min Estimated GFR () 131.8 Estimated GFR (Non- 113.7 BUN/Creatinine Ratio 14.9 (10-20) Calcium Level 8.0 mg/dl (8.5-10.1) Total Bilirubin 0.6 mg/dl (0.2-1) Aspartate Amino Transf (AST/SGOT) 46 U/L (15-37) Alanine Aminotransferase (ALT/SGPT) 29 U/L (12-78) Alkaline Phosphatase 38 U/L (45-117) Total Creatine Kinase 946 U/L (39-308) Total Protein 5.4 gm/dl (6.4-8.2) Albumin 2.9 gm/dl (3.4-5.0) Globulin 2.5 gm/dl (2.5-4.0) Albumin/Globulin Ratio 1.2 (0.9-2) Assessment and Plan Rhabdomyolysis - CK decreased from 1598 to 946 - treat with IVF, 80mls/hr - decreased from 200mls due to the fact that he appeared volume overloaded - pain being treated with 2mg morphine + acetaminophen - pain was worsening throughout the day - consulted orthopedic surgery for assessment JIMENA - resolved - nephrology has signed off - creatinine back to baseline & UA negative Hypothyroidism - continue home dose of levothyroxine VTE Prophylaxis - Heparin SQ Q8H Code - Full Disposition - remains on med/surg Resident Tracking Resident Involvement: Resident Care Provided Care Provided: Adult Hospital Medicine History Resident Physician Supervision Note: I was present with Dr. Perez during the history and exam. I discussed the case with the resident and agree with the findings and plan as documented in the note. Any exceptions or clarifications are listed here. Pt reports improvement of persistent LE aching pain but with now worsening upper extremity b/l hand and FA tightness w/ new development of median nerve paresthesias on the right and radial nerve on the left which are intermittent but increasing in frequency and severity. General Appearance: WD/WN, no apparent distress Respiratory: chest non-tender, lungs clear, normal breath sounds, no respiratory distress Cardiovascular: normal peripheral pulses, regular rate, rhythm, no murmur Extremities: normal inspection, normal capillary refill, other (TTP over the muscles of the LE generally confused but w/ relatively new worsening of FA TTP and visible hand swelling w/ gross sensory differences on examination) Assessment/Plan 36 y/o male w/o significant past medical history w/ new onset diffuse mylagias and increasing CK concerning for rhabdo Upper extremity pain and paresthesia - concern for compartment syndrome in light of present issue and new paresthesias - ortho consult for further evaluation, pain control w/ morphine 4mg q4P Suspected rhabdo - continue IV hydration, CK improved
[2017-02-07 07:52] VITALS: BP 95/61; PULSE 72; TEMP 36.5; O2SAT 97
--- NOTE | 2017-02-07 08:01 | Medical Student: [facility] ---
Med Student Progress Note Date of Service Feb 07, 2017. Subjective Pt evaluation today including: conversation w/ patient, physical exam, lab review No acute events overnight. Was feeling really well last night after a shower, however woke up feeling slightly worse. Still feels much improved from prior to admission but he is frustrated about slow recovery. Pain controlled with morphine. He denies headache, chest pain, numbness or tingling in extremities. He does endorse left thumb tenderness and decreased range of motion but denies numbness or tingling. Early afternoon paged by nurse - patient reported pain, tingling and numbness in the right 4th and 5th fingers. He reported the pain was not relieved by 2mg IV morphine. Review of Systems Constitutional: No fever, No chills, No sweats Respiratory: No cough, No shortness of breath Cardiac: No chest pain, No claudication Abdomen: No pain, No nausea, No vomiting, No diarrhea, No constipation Musculoskeletal: + joint pain (lef tthumb), + muscle pain Male : No dysuria, No urinary frequency Neurologic: + weakness, No numbness/tingling Objective Vital Signs Date Time Temp Pulse Resp B/P (MAP) Pulse Ox O2 Delivery O2 Flow Rate FiO2 02/07/17 07:52 36.5 72 16 95/61 (72) 97 Room Air 02/07/17 00:00 Room Air 02/06/17 23:13 36.8 66 18 103/65 (78) 99 Room Air 02/06/17 16:00 99 Room Air 02/06/17 15:56 36.7 61 18 112/70 (84) 99 Room Air Physical Exam General Appearance: WD/WN, no apparent distress Respiratory/Chest: chest non-tender, lungs clear, normal breath sounds, no respiratory distress Cardiovascular: regular rate, rhythm, no gallop, no murmur Abdomen: normal bowel sounds, non tender, soft Extremities: normal range of motion, + pedal edema (trace edema), + pertinent finding (calves diffusely tender to palpation, thigh tenderness decreased from yesterday; left thumb swollen and tender with some limited adduction) Neurologic/Psychiatric: no motor/sensory deficits, alert, normal mood/affect Skin: normal color, warm/dry Laboratory Results Last 24 Hours Test 02/06/17 08:50 02/06/17 11:03 02/06/17 19:00 02/06/17 19:53 Urine Color YELLOW YELLOW Urine Appearance CLEAR CLEAR Urine pH 6.0 5.5 Urine Specific [place] 1.010 1.023 Urine Protein NEG NEG Urine Glucose (UA) NEG NEG Urine Ketones 1+ NEG Urine Occult Blood NEG NEG Urine Nitrite NEG NEG Urine Bilirubin NEG NEG Urine Urobilinogen NEG NEG Urine Leukocyte Esterase NEG NEG Erythrocyte Sedimentation Rate 2 mm/hr Lactic Acid Level 0.7 mmol/L Lactate Dehydrogenase 169 U/L C-Reactive Protein < 0.29 mg/dl Urine WBC (Auto) 1-5 /hpf Urine RBC (Auto) 0-4 /hpf Urine Hyaline Casts (Auto) 0 /lpf Urine Epithelial Cells (Auto) 0-5 /lpf Urine Bacteria (Auto) NEG Total Creatine Kinase 1598 U/L Test 02/07/17 06:53 Assessment and Plan Assessment and Plan: 36 year old male with a past medical history of hypothyroidism who presented with 2 day duration of severe muscle cramping and tetany who was found to have a CK 898 uptrending to 1689 consistent with rhabdomyolysis as well as a JIMENA with a Cr 2.9 on admission. CK downtrending and JIMENA resolved with fluid resuscitation. Myopathy - likely rhabdomyolysis with CK 898, repeat 1,689; downtrending to ~900; UA negative for blood; urine myoglobin pending - denies steroid use, alcohol use, drug use; ESR WNL, TSH WNL, electrolyte abnormalities resolved and pain persists - Lactate (0.7) and LDH (169) WNL - fluid overloaded on exam, will decrease fluids to 80ml/hr 1/2NS - Morphine prn and acetaminophen for pain control - nephrology following - orthopedic surgery consult for possible development of compartment syndrome JIMENA, resolved - likely component of prerenal and ATN from the elevated CK/possible rhabdo - resolved: Cr 2.9 on admission, now 0.89 - Nephrology following Leukocytosis, resolved - 16 on admission, now 9 - resolved with fluid resuscitation, was likely due to stress reaction - UA negative for source of infection Hypothyroidism - TSH WNL - continue levothyroxine at 125 q2d and 137 q2d Electrolyte abnormalities - hyponatermia resolved - hypercalcemia resolved
[2017-02-07 08:11] LABS: ALB/GLOB RATIO 1.2 (0.9-2); BUN/CREATININE RATIO 14.9 (10-20); CREATININE 0.85 mg/dl (0.60-1.40); POTASSIUM 3.7 mmol/L (3.5-5.1)
--- NOTE | 2017-02-07 10:07 | Nephrology Progress Note ---
Nephrology Progress Note Date of Service Feb 07, 2017. Chief Complaint follow-up for acute kidney injury. Subjective David was seen and examined in his room this morning. He continues to have pain and discomfort mainly in his calf muscles however, overall feeling much better than yesterday. Vital sign remained stable. acute kidney injury resolved and renal function improved back to his baseline, electrolyte acceptable, voiding normally. CPK level trending down. Repeat urinalysis negative for Pyuria, hematuria, proteinuria or RBC. LDH and lactate level was normal. Review of Systems A complete review of systems was performed. Pertinent positives are noted above. All other systems are negative. Vital Signs Last 8 Hrs Date Time Temp Pulse Resp B/P (MAP) Pulse Ox O2 Delivery O2 Flow Rate FiO2 02/07/17 07:52 36.5 72 16 95/61 (72) 97 Room Air Last Recorded Weight Weight (Kilograms): 87.500 Physical Exam GENERAL: Young male, AAA x 3, pleasant, ill-appearing, in mild distress. NECK: Supple, no JVD. RESPIRATORY: Normal breathing efforts, no accessory muscle use, clear to auscultation bilaterally, no wheezes or rales. CARDIOVASCULAR: S1, S2 normal, rate rhythm regular. EXTREMITY: No lower extremity edema, mildly tender. NEURO: speech fluent. PSYCHIATRY: Normal mood and judgment Family History Cancer Social History Smoking Status: Never smoker Alcohol Use: occasionally (3-4 beers per week) Drug Use: none (reports none to me but he told ER MD he smokes Marijuana occasionally) Marital Status: (and has a 1 yr old daughter) Housing Status: lives with family Occupation: employed (self-employed [employer] business) Laboratory Results Past 24 Hours 02/07/17 06:53 Test 02/06/17 08:50 02/06/17 11:03 02/06/17 19:00 02/06/17 19:53 Urine Color YELLOW YELLOW Urine Appearance CLEAR (CLEAR) CLEAR (CLEAR) Urine pH 6.0 (4.5-7.5) 5.5 (4.5-7.5) Urine Specific [place] 1.010 (1.000-1.030) 1.023 (1.000-1.030) Urine Protein NEG (NEG) NEG (NEG) Urine Glucose (UA) NEG (NEG) NEG (NEG) Urine Ketones 1+ (NEG) NEG (NEG) Urine Occult Blood NEG (NEG) NEG (NEG) Urine Nitrite NEG (NEG) NEG (NEG) Urine Bilirubin NEG (NEG) NEG (NEG) Urine Urobilinogen NEG (NEG) NEG (NEG) Urine Leukocyte Esterase NEG (NEG) NEG (NEG) Erythrocyte Sedimentation Rate 2 mm/hr (0-14) Lactic Acid Level 0.7 mmol/L (0.4-2.0) Lactate Dehydrogenase 169 U/L (87-241) C-Reactive Protein < 0.29 mg/dl (0-0.29) Urine WBC (Auto) 1-5 /hpf (0-5) Urine RBC (Auto) 0-4 /hpf (0-4) Urine Hyaline Casts (Auto) 0 /lpf (0-5) Urine Epithelial Cells (Auto) 0-5 /lpf (0-5) Urine Bacteria (Auto) NEG (NEG) Total Creatine Kinase 1598 U/L (39-308) Test 02/07/17 06:53 Anion Gap 5.0 mmol/L (3-11) Est Creatinine Clear Calc Drug Dose 138.4 ml/min Estimated GFR () 131.8 Estimated GFR (Non- 113.7 BUN/Creatinine Ratio 14.9 (10-20) Calcium Level 8.0 mg/dl (8.5-10.1) Total Bilirubin 0.6 mg/dl (0.2-1) Aspartate Amino Transf (AST/SGOT) 46 U/L (15-37) Alanine Aminotransferase (ALT/SGPT) 29 U/L (12-78) Alkaline Phosphatase 38 U/L (45-117) Total Creatine Kinase 946 U/L (39-308) Total Protein 5.4 gm/dl (6.4-8.2) Albumin 2.9 gm/dl (3.4-5.0) Globulin 2.5 gm/dl (2.5-4.0) Albumin/Globulin Ratio 1.2 (0.9-2) Allergies Coded Allergies: Amoxicillin (Verified Allergy, Intermediate, RED SPOTS, 02/05/17) Doxycycline (Verified Allergy, Intermediate, NAILS PEELING OFF, 02/05/17) Sulfa Antibiotics (Verified Allergy, Mild, `, 02/05/17) Cephalosporins (Verified Allergy, Unknown, DURICEF, 02/05/17) Penicillins (Verified Allergy, Unknown, 02/05/17) Medications Current Inpatient Medications Medications (Trade) Dose Ordered Sig/Ursula Route Start Time Stop Time Status Last Admin Dose Admin Heparin Sodium (Porcine) (Heparin Sq 5000 Unit/0.5ml) 5,000 unit Q8H SQ 02/05/17 22:00 03/07/17 21:59 Acetaminophen (Tylenol Tab) 650 mg Q4H PRN PO 02/05/17 19:00 03/07/17 18:59 02/06/17 08:27 650 MG Morphine Sulfate (MoRPHine SULFATE INJ) 2 mg Q2H PRN IV 02/05/17 19:30 02/19/17 19:29 02/07/17 00:17 2 MG Sodium Chloride 1,000 ml @ 200 mls/hr Q5H IV 02/05/17 19:30 03/07/17 19:29 02/07/17 05:58 200 MLS/HR Levothyroxine Sodium (Synthroid Tab) 125 mcg Q2D@0600 PO 02/07/17 06:00 03/09/17 05:59 02/07/17 05:57 125 MCG Levothyroxine Sodium (Synthroid Tab) 137 mcg Q2D@0600 PO 02/06/17 06:00 03/08/17 05:59 02/06/17 06:17 137 MCG Cyclobenzaprine HCl (Flexeril Tab) 5 mg TID PRN PO 02/05/17 23:45 03/07/17 23:44 02/06/17 20:05 5 MG Zolpidem Tartrate (Ambien Tab) 5 mg HS PRN PO 02/06/17 23:30 03/08/17 23:29 02/07/17 00:53 5 MG Jayna Hernandez is a 36-year-old male with acute kidney injury and electrolyte abnormality in the setting of straining was outside at activity. On admission he was found to be significantly volume depleted. acute kidney injury most likely prerenal as renal function rapidly improved from creatinine 2.7-1.2 less than 24 hours with IV hydration. No prior history of chronic kidney disease. Urinalysis negative for hematuria proteinuria. Renal ultrasound was otherwise unremarkable. He did have evidence of mild rhabdomyolysis but not enough to cause acute kidney injury. Since this happened twice in a young person who was otherwise normally pretty active, Cannot exclude the possibility for some underlying metabolic myopathy however, could be secondary to severe volume depletion with strenuous activity causing muscle damage. Although renal ultrasound report commented on some medical renal disease, however patient has normal renal function, baseline creatinine 0.9-1.0, imaging personally reviewed did not show any significant renal cortical thinning or increased echogenicity. Recommendations --acute kidney injury resolved, creatinine 0.9, at his baseline, all other electrolyte to have abnormality resolved --discussed in detail with the patient to avoid volume depletion in future with strenuous activity to avoid incidences like these. --Do not feel like there is any further workup indicated at this time, however if the patient continues to have significant muscle pain, would consider muscle biopsy and further evaluation at a tertiary care facility Will sign off. Please contact with any question or concern. thank you for the consultation.
[2017-02-07] MEDS: SODIUM CHLORIDE 0.45% 1000ML 1,000 ML IV SCH ×2 (11:36→22:28)
[2017-02-07] MEDS: ACETAMINOPHEN 325 MG TAB PO PRN (14:19)
[2017-02-07] MEDS ORDERED: MoRPHine SULFATE 2 MG/ML CARP IV STA (14:38)
[2017-02-07 15:04] VITALS: BP 111/71; PULSE 71; TEMP 36.9; O2SAT 98
[2017-02-07 16:00] VITALS: O2SAT 98
[2017-02-07] MEDS ORDERED: MoRPHine SULFATE 4 MG/ML 1 ML CARP\\VIAL IV STA (16:10)
[2017-02-07] MEDS ORDERED: NURSING VERBAL MED ORDER ONE (16:15)
[2017-02-07] MEDS: CYCLOBENZAPRINE HCL 5 MG TAB PO PRN (19:59)
[2017-02-07 23:14] VITALS: BP 116/79; PULSE 64; TEMP 36.7; O2SAT 97
[2017-02-08] MEDS: MoRPHine SULFATE 2 MG/ML CARP IV PRN ×4 (00:30→05:19)
[2017-02-08] MEDS ORDERED: NURSING VERBAL MED ORDER ONE (03:30)
[2017-02-08] MEDS: LEVOTHYROXINE 137 MCG TAB PO SCH (05:19)
[2017-02-08 07:37] VITALS: BP 129/80; PULSE 66; TEMP 36.5; O2SAT 99
[2017-02-08] MEDS: CYCLOBENZAPRINE HCL 5 MG TAB PO PRN (07:54)
--- NOTE | 2017-02-08 08:54 | ORTHOPEDIC CONSULTATION ---
DATE OF CONSULTATION: 02/07/2017 DATE OF CONSULTATION: 02/07/2017. CHIEF COMPLAINT: Rhabdomyolysis. HISTORY OF PRESENT ILLNESS: David is a pleasant 36-year-old male who was building a retaining wall at home 2 days ago. He was digging a trench all day when he began to have some muscle soreness. He drank 2 pull gallons of water that day. By the afternoon he was having tetany and severe muscle cramps in his hands, arms, feet, legs and lower back. It became so severe that he had to lie down for about 20 minutes until he was able to finally get up and come to the hospital. He says he never developed muscle cramps like that before. On admission he had a creatinine of 2.9 and a CK of 1600. He was started on IV fluids and admitted to the medical service with nephrology consultation. During his stay his kidney function has improved and his CK has subsided. He has continued to have some muscle cramps in his legs, his forearms and his hands since his admission. About 6 hours ago his forearm cramps were becoming much worse and he was noticing increased paresthesias in his hand. His right hand was becoming very cold and very tingly and he was having increased pressure in his forearm. Orthopedics was consulted to evaluate and rule out possible compartment syndrome. PAST MEDICAL HISTORY: Significant for hypothyroidism and sleep apnea. PAST SURGICAL HISTORY: Significant for a rectal abscess drainage x2. FAMILY HISTORY: Noncontributory. SOCIAL HISTORY: He is , has a 1-year-old daughter. 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 CURRENT MEDICATIONS: Include Synthroid 125 mcg every other day, Flexeril 5 mg as needed, heparin 5,000 units subQ every 8 hours, morphine 2 mg as needed and Tylenol as needed for pain. PHYSICAL EXAMINATION: He has full range of motion of his shoulder, elbows, wrists and fingers. His arms and forearms feel soft. He has 5/5 muscle strength throughout his upper extremities. He has very mild paresthesias in his right hand at this point and they occur in all of his fingers. Examination of his lower extremities all of his compartments feel soft. He has full range of motion of his hips, knees and ankles. He has no paresthesias or any lower extremity problems at this time. LABORATORY DATA: He has a current CK level of 946 which is down from 1600 last night. His creatinine has normalized to 0.85. His albumin is a little low at 2.9. His H&H is stable and his urinalysis is negative. IMPRESSION: 1. Acute renal insufficiency that has resolved. 2. Rhabdomyolysis that is improving. PLAN: On orthopedic evaluation I see no signs of compartment syndrome. He has good strength throughout. I do not see any surgical indications at this time. I think it is reasonable to continue with IV fluids and continue to monitor his CK level to make sure it is trending down. He will not need a followup in our office as long as his symptoms improve, but if there are any further questions, please feel free to contact me personally at any time on my cell phone at [phone].
--- NOTE | 2017-02-08 09:08 | Family Medicine Progress Note ---
Progress Note Date of Service Feb 08, 2017. Subjective Pt evaluation today including: conversation w/ patient, physical exam, chart review, lab review, review of inpatient medication list Pain: bilateral leg soreness/cramping PO Intake: tolerating Voiding: no voiding problems Mr. Pulido reports trouble sleeping last night due to pain. He reports bilateral leg cramping and neck stiffness. He also feels a bit dizzy and sob when he has the cramping leg episodes and headache from morphine. He reports previous hx of morphine causing headaches. His R hand numbness/tingling have improved. He has occasional tingling in L toe. Requests improved pain management Medications Current Inpatient Medications Medications (Trade) Dose Ordered Sig/Ursula Route Start Time Stop Time Status Last Admin Dose Admin Heparin Sodium (Porcine) (Heparin Sq 5000 Unit/0.5ml) 5,000 unit Q8H SQ 02/05/17 22:00 03/07/17 21:59 Acetaminophen (Tylenol Tab) 650 mg Q4H PRN PO 02/05/17 19:00 03/07/17 18:59 02/07/17 14:19 650 MG Morphine Sulfate (MoRPHine SULFATE INJ) 2 mg Q2H PRN IV 02/05/17 19:30 02/19/17 19:29 02/08/17 05:19 2 MG Levothyroxine Sodium (Synthroid Tab) 125 mcg Q2D@0600 PO 02/07/17 06:00 03/09/17 05:59 02/07/17 05:57 125 MCG Levothyroxine Sodium (Synthroid Tab) 137 mcg Q2D@0600 PO 02/06/17 06:00 03/08/17 05:59 02/08/17 05:19 137 MCG Cyclobenzaprine HCl (Flexeril Tab) 5 mg TID PRN PO 02/05/17 23:45 03/07/17 23:44 02/08/17 07:54 5 MG Zolpidem Tartrate (Ambien Tab) 5 mg HS PRN PO 02/06/17 23:30 03/08/17 23:29 02/07/17 22:40 5 MG Sodium Chloride 1,000 ml @ 80 mls/hr [id number] IV 02/07/17 11:30 03/09/17 11:29 02/07/17 22:28 80 MLS/HR Objective Vital Signs Date Time Temp Pulse Resp B/P (MAP) Pulse Ox O2 Delivery O2 Flow Rate FiO2 02/08/17 13:56 36.5 66 16 99 Room Air 02/08/17 08:00 Room Air 02/08/17 07:37 36.5 66 16 129/80 (96) 99 Room Air 02/08/17 00:15 Room Air 02/07/17 23:14 36.7 64 18 116/79 (91) 97 Room Air Physical Exam General Appearance: + mild distress Eyes: normal inspection Respiratory/Chest: lungs clear, normal breath sounds, no respiratory distress Cardiovascular: regular rate, rhythm, no edema, + normal peripheral pulses ( intact posterior tibial pulses) Abdomen: normal bowel sounds, non tender, soft Extremities: normal inspection, no pedal edema, normal capillary refill, + calf tenderness (bilateral calf tenderness to palpation), + slow capillary refill Neurologic/Psychiatric: alert, oriented x 3 Laboratory Results 02/08/17 06:58 Test 02/08/17 06:58 Anion Gap 3.0 mmol/L (3-11) Est Creatinine Clear Calc Drug Dose 127.8 ml/min Estimated GFR () 125.3 Estimated GFR (Non- 108.1 BUN/Creatinine Ratio 11.4 (10-20) Calcium Level 8.7 mg/dl (8.5-10.1) Total Creatine Kinase 519 U/L (39-308) Last Resulted 02/06/17 05:56 Red Blood Count 4.63, Mean Corpuscular Volume 89.4, Mean Corpuscular Hemoglobin 29.8, Mean Corpuscular Hemoglobin Concent 33.3, Mean Platelet Volume 9.8, Neutrophils (%) (Auto) 37.1, Lymphocytes (%) (Auto) 49.9, Monocytes (%) (Auto) 11.4, Eosinophils (%) (Auto) 1.0, Basophils (%) (Auto) 0.3, Neutrophils # (Auto ) 3.36, Lymphocytes # (Auto) 4.52, Monocytes # (Auto) 1.03, Eosinophils # (Auto ) 0.09, Basophils # (Auto) 0.03 Last Resulted 02/08/17 06:58 Past 24 Hours Test 02/07/17 19:32 02/08/17 06:58 Range/Units Total Creatine Kinase 721 H 519 H 39-308 U/L Assessment and Plan Rhabdomyolysis - CK decreased from 1721 --> 519 - Continue IVF, 80mls/hr - pain management changed to a one time Toradol 30mg IV dosage JIMENA - resolved - nephrology has signed off - creatinine back to baseline & UA negative Hypothyroidism - continue home dose of levothyroxine VTE Prophylaxis - Heparin SQ Q8H Code - Full Disposition - pending pain improvement with Toradol Resident Tracking Resident Involvement: Resident Care Provided Care Provided: Adult Hospital Medicine Assessment/Plan Resident Physician Supervision Note: I was present with Dr. Guillory during the history and exam. I discussed the case with the resident and agree with the findings and plan as documented in the note. Any exceptions or clarifications are listed here. For full attending documentation, please see discharge summary addendum.
--- NOTE | 2017-02-08 10:03 | PROGRESS NOTE ---
DATE: 02/08/2017 CHIEF COMPLAINT: Rhabdomyolysis. PROGRESS: Bandar is seen and examined at bedside today. His symptoms have not worsened since yesterday. In fact they have improved in his hands and his forearms are feeling better. He is still getting some cramping in his left leg but he continues to improve. No complaints. PHYSICAL EXAMINATION: He has full range of motion of his joints and 5/5 muscle strength throughout. All of his compartments are soft. He is neurovascularly intact. LABORATORY DATA: His CK is improving and is down to 519. IMPRESSION: 1. Rhabdomyolysis, that is improving. 2. Acute renal insufficiency, that has resolved. PLAN: He continues to improve. I do not see anything he needs further from an orthopedic standpoint. He is orthopedically stable for discharge when medically ready.
[2017-02-08] MEDS ORDERED: KETOROLAC TROMETHAMINE 30 MG/ML VIAL IV ONE (10:15)
[2017-02-08 10:25] LABS: BUN/CREATININE RATIO 11.4 (10-20); CALCIUM 8.7 mg/dl (8.5-10.1); CREATININE 0.92 mg/dl (0.60-1.40); POTASSIUM 3.7 mmol/L (3.5-5.1)
[2017-02-08] MEDS: SODIUM CHLORIDE 0.45% 1000ML 1,000 ML IV SCH (11:52)
[2017-02-08] MEDS ORDERED: FLX5 PO (13:32)
[2017-02-08] MEDS ORDERED: OXYC-57 PO (13:32)
[2017-02-08] MEDS ORDERED: NAPR500T3 PO (13:32)
--- NOTE | 2017-02-08 13:45 | Discharge Instructions ---
Discharge Instructions Date of Service Feb 08, 2017. Admission Reason for Admission: Gerardo, Rhabdomyolysis Discharge Discharge Diagnosis / Problem: Intractable muscle pain Discharge Goals Goal(s): Decrease discomfort, Improve function Activity Recommendations Activity Limitations: resume your previous activity . Instructions / Follow-Up Instructions / Follow-Up You were admitted because you over-exerted yourself in the heat which caused your muscles to break down. Your kidneys had a hard time dealing with that. We hydrated you really well to help your kidneys clear the muscle breakdown products and gave you pain medications to help with your pain. We also gave you a muscle relaxers to help with the stiffness you were experiencing. We continued you on your home levothyroxine dosage for your hypothyroidism. Your labs improved over the course of your admission and your kidneys recovered from the stress put on them by your muscles. The kidney doctors saw you as well and were not concerned. At this point, your pain is at a manageable level and can be controlled with a short course of pain medications from home. You can continue any medications you were taking at home prior to your admission such as your levothyroxine and follow up with your primary care doctor within 2-3 days of your discharge for further care as needed. As we discussed avoid activities that require significant arm and leg muscle usage until you feel better such as using a shovel, pulling weeds and running etc. Continue to hydrate well especially when you are out in the sun. Current Hospital Diet Patient's current hospital diet: Renal Diet Discharge Diet Recommended Diet: Regular Diet Procedures Procedures Performed: None Pending Studies Studies pending at discharge: no Medical Emergencies . Who to Call and When: Medical Emergencies: If at any time you feel your situation is an emergency, please call 911 immediately. . Non-Emergent Contact Non-Emergency issues call your: Primary Care Provider Call Non-Emergent contact if: temperature is above 100.5, your pain is worsening, your pain is unusual for you . . "Provider Documentation" section prepared by Jose Luis Guillory. . VTE Core Measure Inpt VTE Proph given/why not?: Unfractionated heparin SQ
[2017-02-08] MEDS: HEPARIN SOD 5000 UNIT/0.5 ML CARP SQ SCH (13:48)
[2017-02-08 13:56] VITALS: BP 129/80; PULSE 66; TEMP 36.5; O2SAT 99
--- NOTE | 2017-02-08 13:58 | Discharge Summary ---
Discharge Summary Date of Service Feb 08, 2017. (Jose Luis Guillory M.D.) Discharge Summary Admission Date: Feb 05, 2017 at 19:21 Discharge Date: Feb 08, 2017 Discharge Disposition: Home Principal Diagnosis: intractable muscle pain Immunizations: Have You Had Influenza Vaccine: Unknown History of Tetanus Vaccine?: Unknown History of Pneumococcal: Unknown History of Hepatitis B Vaccine: Unknown Consultations: Nephrology consulted and orthopedic surgery (Jose Luis Guillory M.D.) Medication Reconciliation New Medications: Naproxen (Naproxen) 500 Mg Tab 1 TAB PO BID for 14 Days, #28 TAB 1 Refill Take with food Oxycodone/Acetaminophen 5MG/325MG (Percocet 5MG/325MG) Tab 1 TABLET PO Q6H PRN for Pain, #5 TAB PAIN Cyclobenzaprine HCl (Cyclobenzaprine HCl) 5 Mg Tab 5 MG PO BID PRN for Muscle Spasms for 7 Days, #14 TAB Continued Medications: Levothyroxine Sodium (Levothyroxine Sodium) 125 Mcg Tab 1 TAB PO QAM Levothyroxine Sodium (Levothyroxine Sodium) 137 Mcg Tab 1 TAB PO QAM Magnesium Oxide (Mag-Ox) 400 Mg Tab 400 MG PO UD Discontinued Medications: Ibuprofen (Motrin) 800 Mg Tab 800 MG PO UD PRN for Pain Discharge Exam Mr. Pulido was admitted for concerns of acute kidney injury secondary to rhabdomyolysis from over exertion in the heat and dehydration. He was hydrated with normal saline and pain was managed with IV Morphine PRN and Acetaminophen. He was also started on Flexeril for muscle stiffness. His CK was 946 on admission and improved to 519 on the day of discharge. His Creatinine was in the range of 0.85-0.92 during his admission. Nephrology was also consulted for concerns of acute kidney injury and he was cleared. Orthopedics was also consulted on 02/07/17 for concerns of compartment syndrome as patient was complaining of paraesthesias in his right hand and appeared tight but he was cleared as he did not have any neurovascular compromise. His pain was controlled on one dosage of Toradol prior to discharge. His pain has improved and manageable with a short course of outpatient pain medications Perocet and Naproxen. Patient was instructed to hydrate well, avoid strenuous activity and follow up with PCP within a week. Please refer to progress note from 02/08/17 for physical exam findings (Jose Luis Guillory M.D.) Hospital Course (1) Rhabdomyolysis (2) JIMENA (acute kidney injury) Total Time Spent: Greater than 30 minutes This includes examination of the patient, discharge planning, medication reconciliation, and communication with other providers. (Jose Luis Guillory M.D.) Discharge Instructions Please refer to the electronic Patient Visit Report (Discharge Instructions) for additional information. (Jose Luis Guillory M.D.) Follow-Up Follow up with PCP: Dr. James Barrios within a week (Jose Luis Guillory M.D.) History Resident Physician Supervision Note: I was present with Dr. Guillory during the history and exam. I discussed the case with the resident and agree with the findings and plan as documented in the note. Any exceptions or clarifications are listed here. Pt reports gradual improvement in resting paresthesias and b/l upper and lower aching muscular pain w/ improved range of motion and function. Pain is well controlled by toradol/NSAID use at present. Reports no fever, strength loss, sensation loss, immobility, fever, nausea, CP/SOB. (Bandar Jiang MD) Constitutional: denies: chills, fever, weakness Respiratory: negative: cough, short of breath, wheezing Cardiovascular: denies chest pain, denies palpitations, denies syncope Musculoskeletal: positive: muscle pain, muscle stiffness, negative: joint pain , joint swelling, neck pain Skin: negative: change in color, change in hair/nails, dryness Neurological/Psych: positive: paresthesia, tingling, negative: numbness (Bnadar Jiang MD) General Appearance: WD/WN, no apparent distress Respiratory: chest non-tender, lungs clear, normal breath sounds, no respiratory distress Cardiovascular: normal peripheral pulses, regular rate, rhythm, no murmur Extremities: normal range of motion, other (improved but persistent b/l FA TTP and b/l calf TTP) Neurologic/Psychiatric: alert, normal mood/affect, oriented x 3, sensory deficit (improved of the b/l hands) Skin Characteristics: normal color, warm/dry (Bandar Jiang MD) Assessment/Plan 36 y/o male w/o significant past medical history w/ new onset diffuse mylagias and increasing CK concerning for rhabdo presently w/ decreased CK (500s) and nl creatinine. Diffuse severe myalgias - controlled w/ toradol inpatient, discharged w/ naproxen, flexeril and small dose of PRN percocet for breakthrough. Encouraged good hydration, activity modification and close f/u for persistent sx or red flags (worsening sensation etc) (Bandar Jiang MD)
== END 2017-02-08 14:20 | disposition home or self-care (01) | DRG 683 ==
LOC: C.EDB 15:38 → C.MS2W 19:21 → ENRESERV 19:32
PROVIDERS: ADMIT Family Medicine; ATTEND Family Medicine
DX: N17.9 Acute kidney failure, unspecified (principal); M62.82 Rhabdomyolysis; G47.30 Sleep apnea, unspecified; E83.52 Hypercalcemia; E03.9 Hypothyroidism, unspecified; D72.829 Elevated white blood cell count, unspecified

== ENCOUNTER 2017-02-09 21:44 | Emergency (ER) | payer OTHER ==
[~2017-02-09] VITALS: Ht 185.4 cm; Wt 92.1 kg
[~2017-02-09 21:44] MED LIST changes: +FLX5 PO; -LEVO112T4 PO; +LEVO125T4 PO; +LEVO137T3 PO; +MAGN400T6 PO; +NAPR500T3 PO; -PRLSR20 PO
[2017-02-09 21:45] VITALS: TEMP 36.5; Ht 185.4 cm; Wt 92.1 kg
[2017-02-09] MEDS ORDERED: SODIUM CHLORIDE 0.9% 1000ML 1,000 ML IV ONE (22:30)
[2017-02-09 22:33] LABS: BASO % 0.4 %; BASO ABS # 0.03 K/uL (0-0.2); COMPLETE YES; EOS % 1.4 %; HEMATOCRIT 40.9 % (42-52); IG% 0.3 %; LYMPH ABS # 3.16 K/uL (1.2-3.4); MEAN CELL VOLUME 89.1 fL (80-100); MEAN CORPUSCULAR HEMOGLOBIN 30.3 pg (25-34); MONO % 7.4 %; NEUT % 49.5 %; PLATELET COUNT 280 K/uL (130-400); RED BLOOD COUNT 4.59 M/uL (4.7-6.1); WHITE BLOOD COUNT 7.71 K/uL (4.8-10.8)
[2017-02-09 22:52] LABS: POINT OF CARE TROPONIN I < 0.030 ng/ml (0-0.045)
[2017-02-09 22:54] LABS: BUN/CREATININE RATIO 9.2 (10-20); CALCIUM 9.3 mg/dl (8.5-10.1); CREATININE 1.2 mg/dl (0.60-1.40); POTASSIUM 3.6 mmol/L (3.5-5.1)
--- NOTE | 2017-02-09 22:55 | DIAGNOSTIC IMAGING REPORT ---
CHEST 2 VIEWS ROUTINE CLINICAL HISTORY: Atypical chest pain COMPARISON STUDY: 02/05/2017 FINDINGS: The cardiac and mediastinal contours are normal. There is no evidence of focal pulmonary consolidation. There is no evidence of failure. There is minor blunting of the costophrenic angles. IMPRESSION: Minor blunting of the costophrenic angles. No evidence of focal pulmonary consolidation. No evidence of failure. Electronically signed by: Hitesh Mayer M.D. 02/09/2017 10:54 PM Dictated Date/Time: 02/09/2017 10:53 PM
[2017-02-09] MEDS ORDERED: OPTIRAY 320 IV PRN (23:00)
[2017-02-09 23:11] LABS: ALB/GLOB RATIO 1.2 (0.9-2); CKMB/CK RATIO 0.8 (0-3.0)
[2017-02-10 00:29] VITALS: BP 146/53; PULSE 64; O2SAT 98
--- NOTE | 2017-02-10 04:33 | EMERGENCY ROOM VISIT NOTE ---
History First contact with patient: 22:15 Chief Complaint: CHEST PAIN Stated Complaint: CHEST PAIN, ARM PAIN Nursing Triage Summary: pt reports he was at the movie theatre watching spiderman he states he developed chest pain with tingling down his left arm he reports he wasnt sure if he should be checked out, but his thought he should be here he relates the pain is direct center sternum area chest pain with radiation of numbness and tingling down his left arm reports he was just admitted for rhabdomylysis, he states he has been hydrating well since discharge History of Present Illness The patient is a 36 year old male who presents to the Emergency Room with complaints of left-sided chest pain with tingling down his left arm that began approximately 90 minutes ago. The patient states he was in a movie theater at the time of onset of symptoms. He does not have lightheadedness or dizziness but left the theater to have evaluation. The patient states his pain and discomfort is essentially resolved at this time. He rated his discomfort a 7/ 10 at the time of symptoms and a 2/10 right now. He has not taken anything for his symptoms. The patient was seen at this facility recently where he was found to be in rhabdomyolysis. He has been drinking and eating as normal. He is urinating without difficulty. He has not had fever or chills. He does not have additional complaints. Review of Systems More than 10 systems were reviewed and otherwise negative with the exception of history of present illness. Past Medical/Surgical History Medical Problems: (1) JIMENA (acute kidney injury) (2) ANAL & RECTAL ABSCESS (3) Rhabdomyolysis (4) Sleep apnea Family History Cancer Social History Smoking Status: Never Smoker Alcohol Use: none Drug Use: none Marital Status: Occupation Status: employed Current/Historical Medications Scheduled Levothyroxine Sodium (Levothyroxine Sodium), 1 TAB PO Q2D Levothyroxine Sodium (Levothyroxine Sodium), 1 TAB PO Q2D Naproxen (Naproxen), 1 TAB PO BID Scheduled PRN Cyclobenzaprine HCl (Cyclobenzaprine HCl), 5 MG PO BID PRN for Muscle Spasms Oxycodone/Acetaminophen 5MG/325MG (Percocet 5MG/325MG), 1 TABLET PO Q6H PRN for Pain Physical Exam Vital Signs Date Time Temp Pulse Resp B/P (MAP) Pulse Ox O2 Delivery O2 Flow Rate FiO2 7/24/17 00:29 64 13 146/53 98 02/09/17 23:04 66 18 139/82 98 Room Air 02/09/17 22:20 Room Air 02/09/17 22:12 63 02/09/17 21:56 98 Room Air 02/09/17 21:45 36.5 64 18 164/88 100 Room Air Pain Rating (0-10): 0 Physical Exam VITALS: Vitals are noted on the nurse's note and reviewed by myself. Vital signs stable. GENERAL: Well-developed, well-nourished, white male, who is in no acute distress and resting comfortably. Patient is cooperative with the examination. HEAD: Normocephalic atraumatic. EARS: External ear normal. External auditory canals clear, tympanic membranes pearly saunders without erythema or effusion bilaterally. EYES: Pupils equal round and reactive to light and accommodation. Conjunctivae without injection, sclerae without icterus. Extraocular movements intact. NOSE: Patent, turbinates without inflammation or discharge. MOUTH: Mucous membranes moist. Tonsils are not enlarged. Pharynx without erythema, blood, or exudate. Uvula midline. Airway patent. NECK: Supple without nuchal rigidity. No lymphadenopathy. No thyromegaly. Cervical spine is nontender. HEART: Regular rate and rhythm without murmurs gallops or rubs. LUNGS: Clear to auscultation bilaterally without wheezes, rales or rhonchi. No retractions or accessory muscle use. ABDOMEN: Positive normal bowel sounds x 4. Soft, nontender, without masses or organomegaly. No guarding or rebound tenderness. MUSCULOSKELETAL: No muscle atrophy, erythema, or edema noted. Full range of motion without joint tenderness in all extremities. No tenderness to palpation. Normal gait. Strength 5/5 throughout. NEURO: Patient was alert and oriented to person place and time. CN II through XII grossly intact. Deep tendon reflexes 2+ throughout. No focal neurological deficits SKIN: The skin was without rashes, erythema, edema, or bruising. Capillary reflex less than 2 seconds. Medical Decision & Procedures ER Provider Diagnostic Interpretation: CHEST 2 VIEWS ROUTINE CLINICAL HISTORY: Atypical chest pain COMPARISON STUDY: 02/05/2017 FINDINGS: The cardiac and mediastinal contours are normal. There is no evidence of focal pulmonary consolidation. There is no evidence of failure. There is minor blunting of the costophrenic angles. IMPRESSION: Minor blunting of the costophrenic angles. No evidence of focal pulmonary consolidation. No evidence of failure. Preliminary Findings Only See Final Report For Complete Findings CTA CHEST: No definite filling defect to suggest a pulmonary embolus. No acute aortic abnormality. No consolidation or effusion. Few mildly prominent bilateral axillary lymph nodes without aissatou lymphadenopathy by CT size criteria. May be reactive if there has been recent infection. Nonspecific right hepatic hypodensity. Could represent a simple cyst Laboratory Results 02/09/17 22:10 Red Blood Count 4.59, Mean Corpuscular Volume 89.1, Mean Corpuscular Hemoglobin 30.3, Mean Corpuscular Hemoglobin Concent 34.0, Mean Platelet Volume 10.0, Neutrophils (%) (Auto) 49.5, Lymphocytes (%) (Auto) 41.0, Monocytes (%) (Auto) 7.4, Eosinophils (%) (Auto) 1.4, Basophils (%) (Auto) 0.4, Neutrophils # (Auto) 3.82, Lymphocytes # (Auto) 3.16, Monocytes # (Auto) 0.57, Eosinophils # (Auto) 0.11, Basophils # (Auto) 0.03 02/09/17 22:10 Test 02/09/17 22:10 02/09/17 22:33 02/09/17 23:45 White Blood Count 7.71 K/uL (4.8-10.8) Red Blood Count 4.59 M/uL (4.7-6.1) Hemoglobin 13.9 g/dL (14.0-18.0) Hematocrit 40.9 % (42-52) Mean Corpuscular Volume 89.1 fL (80-100) Mean Corpuscular Hemoglobin 30.3 pg (25-34) Mean Corpuscular Hemoglobin Concent 34.0 g/dl (32-36) Platelet Count 280 K/uL (130-400) Mean Platelet Volume 10.0 fL (7.4-10.4) Neutrophils (%) (Auto) 49.5 % Lymphocytes (%) (Auto) 41.0 % Monocytes (%) (Auto) 7.4 % Eosinophils (%) (Auto) 1.4 % Basophils (%) (Auto) 0.4 % Neutrophils # (Auto) 3.82 K/uL (1.4-6.5) Lymphocytes # (Auto) 3.16 K/uL (1.2-3.4) Monocytes # (Auto) 0.57 K/uL (0.11-0.59) Eosinophils # (Auto) 0.11 K/uL (0-0.5) Basophils # (Auto) 0.03 K/uL (0-0.2) RDW Standard Deviation 42.5 fL (36.4-46.3) RDW Coefficient of Variation 13.1 % (11.5-14.5) Immature Granulocyte % (Auto) 0.3 % Immature Granulocyte # (Auto) 0.02 K/uL (0.00-0.02) Anion Gap 8.0 mmol/L (3-11) Est Creatinine Clear Calc Drug Dose 98.0 ml/min Estimated GFR () 90.9 Estimated GFR (Non- 78.4 BUN/Creatinine Ratio 9.2 (10-20) Calcium Level 9.3 mg/dl (8.5-10.1) Total Bilirubin 0.4 mg/dl (0.2-1) Aspartate Amino Transf (AST/SGOT) 36 U/L (15-37) Alanine Aminotransferase (ALT/SGPT) 40 U/L (12-78) Alkaline Phosphatase 57 U/L (45-117) Total Creatine Kinase 324 U/L (39-308) Creatine Kinase MB 2.6 ng/ml (0.5-3.6) Creatine Kinase MB Ratio 0.8 (0-3.0) Total Protein 7.4 gm/dl (6.4-8.2) Albumin 4.0 gm/dl (3.4-5.0) Globulin 3.4 gm/dl (2.5-4.0) Albumin/Globulin Ratio 1.2 (0.9-2) Lipase 127 U/L (73-393) Bedside D-Dimer > 450 ng/mlFEU (0-450) Bedside Troponin I < 0.030 ng/ml (0-0.045) Medications Administered Medications (Trade) Dose Ordered Sig/Ursula Route Start Time Stop Time Status Last Admin Dose Admin Sodium Chloride 1,000 ml @ 999 mls/hr Q1H1M ONCE IV 02/09/17 22:30 02/09/17 23:30 DC 02/09/17 22:30 999 MLS/HR ED Course Physical exam and history were performed. Nursing notes, EMR, and Medication List were personally reviewed. Patient appears to have left sided chest pain that began approximately 90 minutes ago. The patient does not appear toxic on examination. IV access was established and labs were obtained. The patient was hydrated with normal saline and placed on the radiation monitor. EKG was normal sinus rhythm without acute ST elevation. Chest x-ray was performed and did not show acute findings. The patient's blood work is as above and was reviewed. He does not have a significantly elevated white blood cell count, gross anemia, bandemia, or significant electrolyte imbalance. Troponin 2 was negative. His d-dimer was elevated a CT scan was performed. CT scan did not show acute process. The patient recently had rhabdomyolysis and his CK today is only slightly elevated. He does not have sign of renal injury. I discussed the workup and evaluation with the patient, who admits that he is under increased stressors recently. This certainly could be the cause of his symptoms. I do did not suspect an acute cardiopulmonary event, and explained the importance of close follow-up with his PCP. The patient was certainly invited back to the ER with any new, worsening, or concerning symptoms. He voiced understanding of this plan and rated his discomfort a 0/10 at the time of departure. The chart was completed utilizing [employer] Speech Voice Recognition Software. Grammatical errors, random word insertions, pronoun errors, and incomplete sentences are an occasional consequence of this system due to software limitations, ambient noise, and hardware issues. Any formal questions or concerns about the content, text, or information contained within the body of this dictation should be directly addressed to the provider for clarification. . Medical Decision Differential diagnosis includes, but is not limited to: Myocardial infarction, dysrhythmia, pericarditis, pneumothorax, aortic aneurysm/dissection, DVT/PE, anxiety, GERD, PUD, electrolyte imbalance, thyroid disorder, pneumonia, bronchitis, pancreatitis, and others Medication Reconcilliation Current Medication List: was personally reviewed by me Blood Pressure Screening Blood pressure disposition: Elevated BP felt to be situational Impression Primary Impression: Non-cardiac chest pain Departure Information Dispostion Home / Self-Care Condition GOOD Forms HOME CARE DOCUMENTATION FORM, IMPORTANT VISIT INFORMATION Patient Instructions My [facility] Additional Instructions You were seen and evaluated today on an emergency basis only. This is not a substitute for, or an effort to provide, complete comprehensive medical care. It is not possible to recognize and treat all injuries or illnesses in a single emergency department visit. For this reason it is recommended that you followup with your primary care physician next week for ongoing care and evaluation. Drink plenty fluids and remain well hydrated. You are welcome to return to the emergency department anytime with new, worsening, or concerning symptoms.
--- NOTE | 2017-02-10 06:59 | DIAGNOSTIC IMAGING REPORT ---
(CHEST FOR PE) ANGIO WITH CLINICAL HISTORY: 36 years-old Male presenting with left-sided chest pain, elevated d-dimer. TECHNIQUE: Multidetector CT angiography of the chest was performed after administration of intravenous contrast. 3-D volumetric and maximum intensity projection (MIP) images were subsequently reconstructed for review. IV contrast: 93 mL of Optiray 320. A dose lowering technique was used consistent with the principles of ALARA (as low as reasonably achievable). COMPARISON: None. CT DOSE (mGy.cm): The estimated cumulative dose is 478.06 mGy.cm. FINDINGS: [employer] topogram: Unremarkable. Pulmonary vasculature: The study is adequate for assessment of the pulmonary vascular tree. No filling defect within the pulmonary arteries to suggest embolus. Main pulmonary artery not enlarged. No flattening of the interventricular septum. No intracardiac filling defect. Remaining chest: On soft tissue windows, normal thyroid and thoracic inlet. No axillary, supraclavicular, or mediastinal lymphadenopathy. Prominent right hilar lymph nodes (series 2 image 87). No significant atherosclerosis. Normal heart size. No pericardial or pleural effusion. Upper abdomen demonstrates well-defined hypodensity in the right hepatic lobe, indeterminate but likely hepatic cyst or hamartoma. Fat-containing left Bochdalek hernia noted. On lung windows, right lower lobe perifissural 3 mm solid nodule, nonspecific. No other focal infiltrate. Airways patent. On bone windows, osseous structures normal. IMPRESSION: 1. No evidence of pulmonary embolism. No acute cardiopulmonary disease. 2. Prominent right hilar lymph nodes likely reactive. Electronically signed by: Carrington Claudio M.D. 02/10/2017 6:57 AM Dictated Date/Time: 02/10/2017 6:50 AM
== END 2017-02-10 00:30 | disposition home or self-care (01) ==
LOC: C.EDB 21:44 → C.EDC 02-10 00:30
DX: R07.9 Chest pain, unspecified (principal); Z79.899 Other long term (current) drug therapy; Z80.9 Family history of malignant neoplasm, unspecified